=== PATIENT | female | born 1975 | race Caucasian/White ===

== ENCOUNTER 2024-02-14 06:45 | Observation (INO) | payer MEDICARE, OTHER ==
[~2024-02-14] VITALS: Ht 172.7 cm; Wt 70.0 kg
[2024-02-14 08:10] LABS: BASOPHILS % (AUTO) 0.5 % (0-1); EOSINOPHILS # (AUTO) 0.1 X10'3 (0-0.9); EOSINOPHILS % (AUTO) 1.8 % (0-6); LYMPHOCYTES # (AUTO) 1.8 X10'3 (1.1-4.8); LYMPHOCYTES % (AUTO) 25.2 % (21-51); MEAN CORPUSCULAR HEMOGLOBIN 32.6 PG (27.0-31.0); MEAN CORPUSCULAR HGB CONC 34.1 g/dL (33.0-36.5); MEAN CORPUSCULAR VOLUME 95.4 FL (78-98); MEAN PLATELET VOLUME 10.1 FL (7.4-10.4); MONOCYTES % (AUTO) 13.8 % (2-12); NEUTROPHILS # (AUTO) 4.1 X10'3 (1.8-7.7); NEUTROPHILS % (AUTO) 58.7 % (42-75); PLATELET COUNT 233 X10'3 (140-440); RED BLOOD COUNT 4.61 X10'6 (4.20-5.60); RED CELL DISTRIBUTION WIDTH 13.6 % (11.5-14.5)
[2024-02-14 08:37] LABS: ALBUMIN 3.4 G/DL (3.4-5.0); ANION GAP 7 (8-16); BLOOD UREA NITROGEN 12 MG/DL (7-18); BUN/CREATININE RATIO 13.2 (10.0-20.0); CHLORIDE 104 MMOL/L (99-107); CREATININE 0.91 MG/DL (0.40-0.90); POTASSIUM 4.3 MMOL/L (3.5-5.1); PRO BRAIN NATRIURETIC PEPTIDE 951 PG/ML (0-125); SODIUM 138 MMOL/L (135-145); TOTAL CARBON DIOXIDE 27.1 MMOL/L (24-32); eCRCL 75 ML/MIN; eGFR 66 ML/MIN
[2024-02-14 08:40] LABS: GLUCOSE 103 MG/DL (70-104)
[2024-02-14] MEDS: morphine 4 MG/ML inj SYRINge IV ONE (09:00)
[2024-02-14] MEDS: aspirin 81mg tab.chew PO SCH (09:18)
[2024-02-14] MEDS ORDERED: FURO40TA4 PO (09:41)
[2024-02-14] MEDS ORDERED: FURO-150 PO (09:41)
[2024-02-14] MEDS ORDERED: SILD20TA14 PO (09:41)
[2024-02-14] MEDS ORDERED: magnesium Cl slow-release 64mg tablet PO PRN (10:40)
[2024-02-14] MEDS ORDERED: potassium Cl 20 mEq SR tablet PO PRN ×2 (10:40)
[2024-02-14] MEDS ORDERED: magnesium sulf-water 4G/100mL 100 ML IV PRN (10:40)
[2024-02-14] MEDS ORDERED: magnesium sulf-water 2g/50mL 50 ML IV PRN (10:40)
[2024-02-14] MEDS ORDERED: potassium Cl 40MEQ/1/2NS 520ml 520 ML IV PRN (10:40)
[2024-02-14] MEDS ORDERED: acetaminophen 325mg tablet PO PRN ×2 (10:40)
[2024-02-14] MEDS: pantoprazole 40mg Tablet.DR PO SCH (11:25)
[2024-02-14] MEDS: HYDROcodone/acetaminophen 5mg/325mg tablet PO PRN (11:25)
[2024-02-14] MEDS: normal saline 1000ml 1,000 ML IV SCH (11:30)
[2024-02-14 16:31] VITALS: BP 127/82; PULSE 67; RESP 18; TEMP 97.9; O2SAT 98
[2024-02-14 16:41] VITALS: RESP 16; O2SAT 98
[2024-02-14 18:00] VITALS: BP 129/79; PULSE 70; RESP 14; TEMP 98.4; O2SAT 96
[2024-02-14 20:00] VITALS: RESP 14; O2SAT 96
[2024-02-14] MEDS: heparin, porcine 5000 units/ml vial SQ SCH (20:44)
[2024-02-14 22:00] VITALS: BP 123/87; PULSE 73; RESP 19; TEMP 97.3; O2SAT 96
[2024-02-14] MEDS: morphine 2 MG/ML inj. syringe IV PRN (22:43)
[2024-02-15] VITALS (14 sets, daily range): BP systolic 97–121; BP diastolic 47–80; PULSE 66–106; RESP 14–20; TEMP 96.7–98.2; O2SAT 93–100
[2024-02-15 05:30] LABS: BASOPHILS % (AUTO) 0.5 % (0-1); EOSINOPHILS # (AUTO) 0.2 X10'3 (0-0.9); EOSINOPHILS % (AUTO) 3.7 % (0-6); HEMATOCRIT 39.5 % (35.0-45.0); HEMOGLOBIN 13.4 g/dl (12.0-16.0); LYMPHOCYTES % (AUTO) 34.9 % (21-51); MEAN CORPUSCULAR HEMOGLOBIN 32.4 PG (27.0-31.0); MEAN CORPUSCULAR HGB CONC 33.9 g/dL (33.0-36.5); MEAN CORPUSCULAR VOLUME 95.7 FL (78-98); MEAN PLATELET VOLUME 10.1 FL (7.4-10.4); MONOCYTES # (AUTO) 0.8 X10'3 (0-0.9); MONOCYTES % (AUTO) 13.6 % (2-12); NEUTROPHILS # (AUTO) 2.7 X10'3 (1.8-7.7); NEUTROPHILS % (AUTO) 47.3 % (42-75); PLATELET COUNT 187 X10'3 (140-440); RED BLOOD COUNT 4.12 X10'6 (4.20-5.60); RED CELL DISTRIBUTION WIDTH 13.5 % (11.5-14.5); WHITE BLOOD COUNT 5.6 X10'3 (4.5-11.0)
[2024-02-15 06:21] LABS: ALANINE AMINOTRANSFERASE 100 U/L (12-78); ALBUMIN 2.7 G/DL (3.4-5.0); ALBUMIN/GLOBULIN RATIO 0.6 (1.1-1.5); ALKALINE PHOSPHATASE 73 IU/L (46-116); ANION GAP 10 (8-16); ASPARTATE AMINO TRANSFERASE 81 U/L (10-37); BILIRUBIN,TOTAL 0.8 MG/DL (0.1-1.0); BLOOD UREA NITROGEN 13 MG/DL (7-18); BUN/CREATININE RATIO 14.6 (10.0-20.0); CALCIUM 8.9 MG/DL (8.5-10.1); CHLORIDE 104 MMOL/L (99-107); CREATININE 0.89 MG/DL (0.40-0.90); GLUCOSE 98 MG/DL (70-104); POTASSIUM 3.6 MMOL/L (3.5-5.1); SODIUM 137 MMOL/L (135-145); TOTAL CARBON DIOXIDE 23.5 MMOL/L (24-32); TOTAL PROTEIN 7.6 G/DL (6.4-8.2); eCRCL 77 ML/MIN; eGFR 67 ML/MIN
[2024-02-15] MEDS ORDERED: aspirin 81mg tab.chew PO SCH (08:30)
[2024-02-15] MEDS ORDERED: nitroGLYCERIN 0.4mg SUBLingual tab SL PRN (10:05)
[2024-02-15] MEDS ORDERED: metoprolol tartrate 1mg/ml inj IV PRN (10:05)
[2024-02-15] MEDS ORDERED: aminophylline 250mg/10ml inj. IV PRN (10:05)
[2024-02-15] MEDS: regadenoson 0.4mg/5ml syringe IV PRN (12:33)
[2024-02-15] MEDS: carVEDilol 3.125mg tablet PO SCH (13:34)
[2024-02-15] MEDS: furosemide 20MG tablet PO SCH (13:34)
[2024-02-15] MEDS: losartan 25mg tablet PO SCH (13:34)
[2024-02-15] MEDS: spironolactone 25 MG tablet PO SCH (13:36)
[2024-02-15] MEDS: sildenafil citrate 20mg tablet PO SCH (20:40)
[2024-02-16 02:00] VITALS: BP 93/52; PULSE 76; RESP 21; TEMP 97.5; O2SAT 94
[2024-02-16 06:00] VITALS: BP 86/57; PULSE 79; RESP 17; TEMP 97.9; O2SAT 93
[2024-02-16 06:03] LABS: BASOPHILS % (AUTO) 0.3 % (0-1); EOSINOPHILS # (AUTO) 0.2 X10'3 (0-0.9); EOSINOPHILS % (AUTO) 2.8 % (0-6); HEMATOCRIT 40.7 % (35.0-45.0); HEMOGLOBIN 14.1 g/dl (12.0-16.0); LYMPHOCYTES # (AUTO) 1.6 X10'3 (1.1-4.8); LYMPHOCYTES % (AUTO) 24.2 % (21-51); MEAN CORPUSCULAR HEMOGLOBIN 33.1 PG (27.0-31.0); MEAN CORPUSCULAR HGB CONC 34.5 g/dL (33.0-36.5); MEAN PLATELET VOLUME 11.1 FL (7.4-10.4); MONOCYTES % (AUTO) 14.4 % (2-12); NEUTROPHILS # (AUTO) 3.9 X10'3 (1.8-7.7); NEUTROPHILS % (AUTO) 58.3 % (42-75); PLATELET COUNT 197 X10'3 (140-440); RED BLOOD COUNT 4.24 X10'6 (4.20-5.60); RED CELL DISTRIBUTION WIDTH 13.5 % (11.5-14.5); WHITE BLOOD COUNT 6.7 X10'3 (4.5-11.0)
[2024-02-16 06:19] LABS: ALANINE AMINOTRANSFERASE 107 U/L (12-78); ALBUMIN/GLOBULIN RATIO 0.6 (1.1-1.5); ALKALINE PHOSPHATASE 75 IU/L (46-116); ANION GAP 11 (8-16); ASPARTATE AMINO TRANSFERASE 94 U/L (10-37); BLOOD UREA NITROGEN 18 MG/DL (7-18); BUN/CREATININE RATIO 21.2 (10.0-20.0); CALCIUM 9.2 MG/DL (8.5-10.1); CHLORIDE 101 MMOL/L (99-107); CREATININE 0.85 MG/DL (0.40-0.90); GLUCOSE 105 MG/DL (70-104); POTASSIUM 3.6 MMOL/L (3.5-5.1); SODIUM 135 MMOL/L (135-145); TOTAL CARBON DIOXIDE 23.3 MMOL/L (24-32); TOTAL PROTEIN 8.3 G/DL (6.4-8.2); eCRCL 81 ML/MIN; eGFR 71 ML/MIN
[2024-02-16] MEDS: ondansetron/PF 4mg/2ml inj IV PRN (08:00)
[2024-02-16] MEDS ORDERED: LOSA25TA41 PO ×2 (09:51→10:51)
[2024-02-16] MEDS ORDERED: COR3.125T PO (09:51)
[2024-02-16] MEDS ORDERED: PANT40TA54 PO (09:51)
[2024-02-16] MEDS ORDERED: SPIR25TA PO (09:51)
[2024-02-16 10:00] VITALS: BP 90/54; PULSE 74; RESP 17; TEMP 97.8; O2SAT 94
== END 2024-02-16 15:00 | disposition home or self-care (01) ==
LOC: ER 06:45 → ED HOLD 10:37 → PCU 3S 16:34
PROVIDERS: ADMIT Internal Medicine; ATTEND Internal Medicine
DX: R07.89 Other chest pain (principal); I27.0 Primary pulmonary hypertension; I50.20 Unspecified systolic (congestive) heart failure; F41.8 Other specified anxiety disorders; I42.9 Cardiomyopathy, unspecified; Z79.899 Other long term (current) drug therapy
CPT/HCPCS: 36415; 71045; 78452; 80048; 80053; 83880; 84484; 85025; 85379; 87081; 93005; 93017; 93306; 96361; 96372; 96374; 96375; 96376; 99285; A9500; G0378; J1644; J2270; J2405; J2785; J7030; A4615

== ENCOUNTER 2024-03-31 11:48 | Emergency (ER) | payer OTHER ==
[~2024-03-31] VITALS: Ht 172.7 cm; Wt 61.4 kg
[~2024-03-31 11:48] MED LIST: COR3.125T PO; FURO40TA4 PO; LOSA25TA41 PO; PANT40TA54 PO; SILD20TA14 PO
[2024-03-31 12:08] VITALS: TEMP 97.8
[2024-03-31 12:24] LABS: BASOPHILS % (AUTO) 0.4 % (0-1); EOSINOPHILS # (AUTO) 0.1 X10'3 (0-0.9); HEMOGLOBIN 15.1 g/dl (12.0-16.0); LYMPHOCYTES # (AUTO) 1.6 X10'3 (1.1-4.8); MEAN CORPUSCULAR HGB CONC 34.8 g/dL (33.0-36.5); MEAN PLATELET VOLUME 10.4 FL (7.4-10.4); MONOCYTES # (AUTO) 0.9 X10'3 (0-0.9); NEUTROPHILS # (AUTO) 2.5 X10'3 (1.8-7.7)
[2024-03-31 12:26] LABS: EOSINOPHILS % (AUTO) 2.4 % (0-6); HEMATOCRIT 43.5 % (35.0-45.0); LYMPHOCYTES % (AUTO) 31.5 % (21-51); MEAN CORPUSCULAR HEMOGLOBIN 34.2 PG (27.0-31.0); MEAN CORPUSCULAR VOLUME 98.4 FL (78-98); NEUTROPHILS % (AUTO) 48.7 % (42-75); PLATELET COUNT 191 X10'3 (140-440); RED BLOOD COUNT 4.42 X10'6 (4.20-5.60); RED CELL DISTRIBUTION WIDTH 14.3 % (11.5-14.5)
[2024-03-31 12:42] LABS: ALANINE AMINOTRANSFERASE 169 U/L (12-78); ALBUMIN 3.5 G/DL (3.4-5.0); ALBUMIN/GLOBULIN RATIO 0.6 (1.1-1.5); ALKALINE PHOSPHATASE 99 IU/L (46-116); ANION GAP 6 (8-16); ASPARTATE AMINO TRANSFERASE 143 U/L (10-37); BILIRUBIN,TOTAL 0.6 MG/DL (0.1-1.0); BLOOD UREA NITROGEN 8 MG/DL (7-18); BUN/CREATININE RATIO 10.1 (10.0-20.0); CALCIUM 9.3 MG/DL (8.5-10.1); CHLORIDE 104 MMOL/L (99-107); CREATININE 0.79 MG/DL (0.40-0.90); GLUCOSE 106 MG/DL (70-104); POTASSIUM 3.9 MMOL/L (3.5-5.1); PRO BRAIN NATRIURETIC PEPTIDE 683 PG/ML (0-125); SODIUM 137 MMOL/L (135-145); TOTAL PROTEIN 9.5 G/DL (6.4-8.2); eCRCL 83 ML/MIN; eGFR 77 ML/MIN
[2024-03-31 12:49] LABS: PLATELET ESTIMATE NORMAL
[2024-03-31 12:50] LABS: TARGET CELLS 1+
[2024-03-31] MEDS ORDERED: LORazepam 2 mg/ml vial IV ONE (14:25)
[2024-03-31] MEDS: ipratropium/albuterol 3ml nebule NEB ONE (14:26)
[2024-03-31 14:35] LABS: D-DIMER 0.39 MG/L FEU (0-0.50)
[2024-03-31] MEDS: LORazepam 1 MG tablet PO PRN (15:23)
[2024-03-31 15:36] VITALS: PULSE 75
[2024-03-31 15:37] VITALS: BP 116/89; RESP 17; O2SAT 97
== END 2024-03-31 15:35 | disposition home or self-care (01) ==
LOC: ER 11:49
DX: R07.89 Other chest pain (principal); F41.9 Anxiety disorder, unspecified; F32.A Depression, unspecified; Z88.8 Allergy status to other drugs, medicaments and biological substances; Z79.899 Other long term (current) drug therapy; Z90.49 Acquired absence of other specified parts of digestive tract
CPT/HCPCS: 36415; 71045; 80053; 83880; 84484; 85008; 85025; 85379; 93005; 99285

== ENCOUNTER 2024-04-16 11:08 | Emergency (ER) | payer OTHER ==
[~2024-04-16] VITALS: Ht 172.7 cm; Wt 61.4 kg
[2024-04-16 11:34] LABS: BASOPHILS % (AUTO) 0.4 % (0-1); EOSINOPHILS # (AUTO) 0.1 X10'3 (0-0.9); EOSINOPHILS % (AUTO) 2.2 % (0-6); HEMATOCRIT 42.5 % (35.0-45.0); HEMOGLOBIN 14.8 g/dl (12.0-16.0); LYMPHOCYTES # (AUTO) 1.7 X10'3 (1.1-4.8); LYMPHOCYTES % (AUTO) 32.1 % (21-51); MEAN CORPUSCULAR HEMOGLOBIN 34.7 PG (27.0-31.0); MEAN CORPUSCULAR HGB CONC 34.8 g/dL (33.0-36.5); MEAN CORPUSCULAR VOLUME 99.8 FL (78-98); MEAN PLATELET VOLUME 9.6 FL (7.4-10.4); MONOCYTES # (AUTO) 0.7 X10'3 (0-0.9); MONOCYTES % (AUTO) 14.3 % (2-12); NEUTROPHILS # (AUTO) 2.6 X10'3 (1.8-7.7); PLATELET COUNT 194 X10'3 (140-440); RED BLOOD COUNT 4.26 X10'6 (4.20-5.60); RED CELL DISTRIBUTION WIDTH 13.6 % (11.5-14.5); WHITE BLOOD COUNT 5.2 X10'3 (4.5-11.0)
[2024-04-16 11:57] LABS: ALANINE AMINOTRANSFERASE 161 U/L (12-78); ALBUMIN 3.5 G/DL (3.4-5.0); ALBUMIN/GLOBULIN RATIO 0.6 (1.1-1.5); ALKALINE PHOSPHATASE 99 IU/L (46-116); ANION GAP 7 (8-16); ASPARTATE AMINO TRANSFERASE 131 U/L (10-37); BILIRUBIN,TOTAL 0.9 MG/DL (0.1-1.0); BLOOD UREA NITROGEN 11 MG/DL (7-18); BUN/CREATININE RATIO 15.1 (10.0-20.0); CALCIUM 9.2 MG/DL (8.5-10.1); CHLORIDE 105 MMOL/L (99-107); CREATININE 0.73 MG/DL (0.40-0.90); GLUCOSE 98 MG/DL (70-104); POTASSIUM 3.8 MMOL/L (3.5-5.1); PRO BRAIN NATRIURETIC PEPTIDE 586 PG/ML (0-125); SODIUM 136 MMOL/L (135-145); TOTAL CARBON DIOXIDE 23.6 MMOL/L (24-32); TOTAL PROTEIN 9.2 G/DL (6.4-8.2); eCRCL 90 ML/MIN; eGFR 85 ML/MIN
[2024-04-16] MEDS ORDERED: CEFU250T95 PO (12:17)
[2024-04-16] MEDS: ondansetron/PF 4mg/2ml inj IM ONE (12:28)
[2024-04-16] MEDS: furosemide 10 MG/1 ML 10ml inj IV ONE (12:34)
[2024-04-16] MEDS ORDERED: PRED10TA23 PO (13:00)
[2024-04-16] MEDS: ketorolac trometh 15mg/ml vial 15 MG/ML ML IV ONE (13:24)
[2024-04-16 13:29] VITALS: BP 115/86; PULSE 79; RESP 16; TEMP 98.2; O2SAT 96
== END 2024-04-16 13:32 | disposition home or self-care (01) ==
LOC: ER 11:08
DX: I50.9 Heart failure, unspecified (principal); J40 Bronchitis, not specified as acute or chronic; Z90.49 Acquired absence of other specified parts of digestive tract; Z72.0 Tobacco use; Z88.8 Allergy status to other drugs, medicaments and biological substances; Z79.899 Other long term (current) drug therapy; Z79.52 Long term (current) use of systemic steroids
CPT/HCPCS: 36415; 71045; 80053; 83880; 84484; 85025; 93005; 96372; 96374; 96375; 99285; J1885; J1940; J2405

== ENCOUNTER 2024-05-13 19:35 | Emergency (ER) | payer MEDICAID, OTHER ==
[~2024-05-13] VITALS: Ht 172.7 cm; Wt 77.0 kg
[2024-05-13 19:40] VITALS: TEMP 98.4
[2024-05-13] MEDS: LORazepam 1 MG tablet PO ONE (20:28)
[2024-05-13] MEDS: aspirin 81mg tab.chew PO ONE (20:29)
[2024-05-13 20:40] LABS: BASOPHILS % (AUTO) 0.5 % (0-1); EOSINOPHILS # (AUTO) 0.3 X10'3 (0-0.9); EOSINOPHILS % (AUTO) 4.8 % (0-6); HEMATOCRIT 41.7 % (35.0-45.0); HEMOGLOBIN 14.6 g/dl (12.0-16.0); LYMPHOCYTES % (AUTO) 33.9 % (21-51); MEAN CORPUSCULAR HEMOGLOBIN 34.5 PG (27.0-31.0); MEAN CORPUSCULAR VOLUME 98.4 FL (78-98); MEAN PLATELET VOLUME 9.2 FL (7.4-10.4); MONOCYTES # (AUTO) 0.8 X10'3 (0-0.9); MONOCYTES % (AUTO) 13.6 % (2-12); NEUTROPHILS # (AUTO) 2.8 X10'3 (1.8-7.7); NEUTROPHILS % (AUTO) 47.2 % (42-75); PLATELET COUNT 183 X10'3 (140-440); RED BLOOD COUNT 4.23 X10'6 (4.20-5.60); RED CELL DISTRIBUTION WIDTH 13.1 % (11.5-14.5); WHITE BLOOD COUNT 5.9 X10'3 (4.5-11.0)
[2024-05-13 21:07] LABS: D-DIMER < 0.19 MG/L FEU (0-0.50)
[2024-05-13] MEDS: metoclopramide 10mg tablet PO ONE (21:24)
[2024-05-13 21:25] LABS: ALBUMIN 3.1 G/DL (3.4-5.0); ANION GAP 9 (8-16); BLOOD UREA NITROGEN 8 MG/DL (7-18); BUN/CREATININE RATIO 9.9 (10.0-20.0); CALCIUM 8.6 MG/DL (8.5-10.1); CHLORIDE 103 MMOL/L (99-107); CREATININE 0.81 MG/DL (0.40-0.90); GLUCOSE 100 MG/DL (70-104); POTASSIUM 3.8 MMOL/L (3.5-5.1); PRO BRAIN NATRIURETIC PEPTIDE 487 PG/ML (0-125); SODIUM 136 MMOL/L (135-145); TOTAL CARBON DIOXIDE 23.6 MMOL/L (24-32); eCRCL 85 ML/MIN; eGFR 75 ML/MIN
[2024-05-13] MEDS: ketorolac trometh 30MG/ML vial 30 MG/ML VIAL IM ONE (21:25)
[2024-05-13 23:44] VITALS: BP 102/75; PULSE 88; RESP 16; O2SAT 91
== END 2024-05-13 23:45 | disposition home or self-care (01) ==
LOC: ER 19:37
DX: R07.9 Chest pain, unspecified (principal); R06.02 Shortness of breath; I50.9 Heart failure, unspecified; I27.20 Pulmonary hypertension, unspecified; F41.9 Anxiety disorder, unspecified; F32.A Depression, unspecified; Z90.49 Acquired absence of other specified parts of digestive tract; Z88.8 Allergy status to other drugs, medicaments and biological substances; Z79.899 Other long term (current) drug therapy
CPT/HCPCS: 36415; 71045; 80048; 83880; 84484; 85025; 85379; 93005; 96372; 99285; J1885

== ENCOUNTER 2024-07-25 21:08 | Emergency (ER) | payer MEDICAID ==
[~2024-07-25] VITALS: Ht 172.7 cm; Wt 73.2 kg
[~2024-07-25 21:08] MED LIST changes: +CARV3.1232 PO; -COR3.125T PO
[2024-07-25 21:12] VITALS: TEMP 98.5
[2024-07-25 22:04] LABS: ALANINE AMINOTRANSFERASE 141 U/L (12-78); ALBUMIN 3.5 G/DL (3.4-5.0); ALBUMIN/GLOBULIN RATIO 0.6 (1.1-1.5); ALKALINE PHOSPHATASE 104 IU/L (46-116); ANION GAP 12 (8-16); BILIRUBIN,TOTAL 0.4 MG/DL (0.1-1.0); BLOOD UREA NITROGEN 4 MG/DL (7-18); BUN/CREATININE RATIO 5.2 (10.0-20.0); CALCIUM 9.2 MG/DL (8.5-10.1); CHLORIDE 101 MMOL/L (99-107); CREATININE 0.77 MG/DL (0.40-0.90); GLUCOSE 98 MG/DL (70-104); SODIUM 137 MMOL/L (135-145); TOTAL CARBON DIOXIDE 24.1 MMOL/L (24-32); TOTAL PROTEIN 9.2 G/DL (6.4-8.2); eCRCL 89 ML/MIN; eGFR 80 ML/MIN
[2024-07-25 22:11] LABS: PRO BRAIN NATRIURETIC PEPTIDE 290 PG/ML (0-125)
[2024-07-25 22:12] LABS: ASPARTATE AMINO TRANSFERASE 151 U/L (10-37); POTASSIUM 4.2 MMOL/L (3.5-5.1)
[2024-07-25 22:15] LABS: MEAN CORPUSCULAR HEMOGLOBIN 34.9 PG (27.0-31.0); NEUTROPHILS # (AUTO) 3.7 X10'3 (1.8-7.7); RED CELL DISTRIBUTION WIDTH 13.4 % (11.5-14.5)
[2024-07-25 22:16] LABS: BASOPHILS % (AUTO) 0.7 % (0-1); EOSINOPHILS # (AUTO) 0.2 X10'3 (0-0.9); EOSINOPHILS % (AUTO) 2.3 % (0-6); HEMATOCRIT 44.8 % (35.0-45.0); HEMOGLOBIN 15.8 g/dl (12.0-16.0); LYMPHOCYTES % (AUTO) 29.7 % (21-51); MEAN CORPUSCULAR HGB CONC 35.3 g/dL (33.0-36.5); MEAN CORPUSCULAR VOLUME 98.9 FL (78-98); MEAN PLATELET VOLUME 10.5 FL (7.4-10.4); MONOCYTES # (AUTO) 0.9 X10'3 (0-0.9); MONOCYTES % (AUTO) 13.6 % (2-12); NEUTROPHILS % (AUTO) 53.7 % (42-75); PLATELET COUNT 195 X10'3 (140-440); RED BLOOD COUNT 4.52 X10'6 (4.20-5.60); WHITE BLOOD COUNT 6.8 X10'3 (4.5-11.0)
[2024-07-25] MEDS: orphenadrine citrate 60mg/2ml inj. IM ONE (23:20)
[2024-07-25] MEDS: ketorolac trometh 15mg/ml vial 15 MG/ML ML IM ONE (23:21)
[2024-07-25 23:42] LABS: GIANT PLATELET FEW; LARGE PLATELETS MANY; PLATELET ESTIMATE NORMAL
[2024-07-26] MEDS: oxyCODONE/APAP 10/325mg tablet PO ONE (00:09)
[2024-07-26 00:15] VITALS: BP 113/87; PULSE 87; RESP 15; O2SAT 96
== END 2024-07-26 00:20 | disposition home or self-care (01) ==
LOC: ER 21:09
DX: M62.838 Other muscle spasm (principal); M25.512 Pain in left shoulder; F32.A Depression, unspecified; F41.9 Anxiety disorder, unspecified; F17.210 Nicotine dependence, cigarettes, uncomplicated; I10 Essential (primary) hypertension; I50.9 Heart failure, unspecified; Z88.8 Allergy status to other drugs, medicaments and biological substances; Z90.49 Acquired absence of other specified parts of digestive tract; Z79.899 Other long term (current) drug therapy
CPT/HCPCS: 36415; 71045; 80053; 83880; 84484; 85008; 85025; 85379; 93005; 96372; 99285; J1885; J2360

== ENCOUNTER 2024-09-22 18:28 | Emergency (ER) | payer MEDICAID ==
[~2024-09-22] VITALS: Ht 172.7 cm; Wt 70.0 kg
[2024-09-22 19:25] LABS: EOSINOPHILS # (AUTO) 0.1 X10'3 (0-0.9); EOSINOPHILS % (AUTO) 1.6 % (0-6); HEMOGLOBIN 15.1 g/dl (12.0-16.0); MEAN PLATELET VOLUME 9.5 FL (7.4-10.4); MONOCYTES # (AUTO) 0.8 X10'3 (0-0.9); RED CELL DISTRIBUTION WIDTH 12.6 % (11.5-14.5)
[2024-09-22 19:41] LABS: ANION GAP 10 (8-16); BILIRUBIN,TOTAL 0.6 MG/DL (0.1-1.0); BLOOD UREA NITROGEN 11 MG/DL (7-18); BUN/CREATININE RATIO 14.1 (10.0-20.0); CHLORIDE 103 MMOL/L (99-107); CREATININE 0.78 MG/DL (0.40-0.90); GLUCOSE 111 MG/DL (70-104); POTASSIUM 3.8 MMOL/L (3.5-5.1); SODIUM 137 MMOL/L (135-145); TOTAL CARBON DIOXIDE 24.5 MMOL/L (24-32); eCRCL 88 ML/MIN; eGFR 78 ML/MIN
[2024-09-22 19:42] LABS: ALANINE AMINOTRANSFERASE 118 U/L (12-78); ALBUMIN 3.4 G/DL (3.4-5.0); ALBUMIN/GLOBULIN RATIO 0.6 (1.1-1.5); ALKALINE PHOSPHATASE 103 IU/L (46-116); ASPARTATE AMINO TRANSFERASE 107 U/L (10-37)
[2024-09-22 19:51] LABS: PRO BRAIN NATRIURETIC PEPTIDE 100 PG/ML (0-125)
[2024-09-22 19:59] LABS: BASOPHILS % (AUTO) 0.6 % (0-1); HEMATOCRIT 43.4 % (35.0-45.0); LYMPHOCYTES # (AUTO) 1.6 X10'3 (1.1-4.8); LYMPHOCYTES % (AUTO) 24.1 % (21-51); MEAN CORPUSCULAR HEMOGLOBIN 34.5 PG (27.0-31.0); MEAN CORPUSCULAR HGB CONC 34.8 g/dL (33.0-36.5); MEAN CORPUSCULAR VOLUME 99.2 FL (78-98); MONOCYTES % (AUTO) 12.2 % (2-12); NEUTROPHILS % (AUTO) 61.5 % (42-75); PLATELET COUNT 192 X10'3 (140-440); RED BLOOD COUNT 4.38 X10'6 (4.20-5.60); WHITE BLOOD COUNT 6.5 X10'3 (4.5-11.0)
[2024-09-22] MEDS: HYDROcodone/acetaminophen 5mg/325mg tablet PO ONE (21:32)
[2024-09-22] MEDS ORDERED: AMOX-580 PO (21:38)
[2024-09-22 21:58] VITALS: BP 112/79; PULSE 86; RESP 12; TEMP 98.2; O2SAT 96
== END 2024-09-22 22:00 | disposition home or self-care (01) ==
LOC: ER 18:29
DX: S06.0XAA Concussion with loss of consciousness status unknown, initial encounter (principal); S00.83XA Contusion of other part of head, initial encounter; K04.7 Periapical abscess without sinus; I50.9 Heart failure, unspecified; R55 Syncope and collapse; F41.9 Anxiety disorder, unspecified; F32.A Depression, unspecified; Z90.49 Acquired absence of other specified parts of digestive tract; Z88.8 Allergy status to other drugs, medicaments and biological substances; Z79.899 Other long term (current) drug therapy; W18.39XA Other fall on same level, initial encounter; Y93.89 Activity, other specified; Y92.89 Other specified places as the place of occurrence of the external cause; Y99.8 Other external cause status
CPT/HCPCS: 36415; 70450; 70486; 71045; 72125; 80053; 82948; 83880; 84484; 85025; 93005; 99285

== ENCOUNTER 2024-10-23 14:20 | Emergency (ER) | payer MEDICAID ==
[~2024-10-23] VITALS: Ht 172.7 cm; Wt 69.3 kg
[~2024-10-23 14:20] MED LIST changes: +AMOX-580 PO
[2024-10-23 15:34] VITALS: TEMP 98.1
[2024-10-23] MEDS ORDERED: HYDR-3965 PO (17:12)
[2024-10-23] MEDS: HYDROcodone/acetaminophen 10/325mg tab PO ONE (17:20)
[2024-10-23 18:14] VITALS: BP 108/71; PULSE 71; RESP 16; O2SAT 98
== END 2024-10-23 18:18 | disposition home or self-care (01) ==
LOC: ER 14:21
DX: N64.4 Mastodynia (principal); I50.9 Heart failure, unspecified; F32.A Depression, unspecified; F41.9 Anxiety disorder, unspecified; Z85.3 Personal history of malignant neoplasm of breast; Z90.49 Acquired absence of other specified parts of digestive tract; Z88.8 Allergy status to other drugs, medicaments and biological substances; Z79.899 Other long term (current) drug therapy
CPT/HCPCS: 71045; 99283

== ENCOUNTER 2025-01-17 17:47 | Emergency (ER) | payer MEDICAID ==
[~2025-01-17] VITALS: Ht 172.7 cm; Wt 74.0 kg
[~2025-01-17 17:47] MED LIST changes: -AMOX-580 PO
[2025-01-17 17:56] VITALS: TEMP 95.9
--- NOTE | 2025-01-17 18:22 | RADIOLOGY REPORT ---
EXAM: DI CHEST,SINGLE VIEW CLINICAL HISTORY: cough TECHNIQUE: Single AP view of the chest WID: COMPARISON: DI CHEST,SINGLE VIEW on DOS: 10/23/24 FINDINGS: Lines and tubes: None Chest: The heart size and pulmonary vasculature is within normal limits. No pleural effusion, pneumothorax, or consolidation. Linear bibasilar scarring or atelectasis. The osseous structures are grossly intact. IMPRESSION: No acute cardiopulmonary abnormality. Linear bibasilar scarring or atelectasis.
--- NOTE | 2025-01-17 18:30 | Physician Documentation ---
History of Present Illness ~ Chief Complaint: Abdominal Pain w/vomiting Stated Complaint: N/V ABD PAIN Time Seen by MD: 18:00 Primary Medical Doctor: Claudette SINGH Patient presents to the emergency room for evaluation of nausea vomiting and abdominal pain that has been gradually increasing over the past five days. Patient has history of breast cancer which was diagnosed this past August. She started tamoxifen but it was unable to tolerate that. She states that it has grown since it was discovered. She is on 6 L of oxygen at baseline and reports no increased in shortness of breath. She has taken Zofran for her abdominal pain and nausea and vomiting however this did not have affect. Last dose at approximately 11:00 a.m.. No prior instances. Medication Reconciliation Allergies: Coded Allergies: butorphanol tartrate (Unverified Allergy, Unknown, 01/17/25) prochlorperazine maleate (Unverified Allergy, Unknown, 01/17/25) Scheduled Carvedilol (Carvedilol), 3.125 MG PO BID Furosemide (Furosemide), 1 TAB PO QAM, (Reported) Losartan Potassium (Losartan Potassium), 12.5 MG PO DAILY Pantoprazole Sodium (Pantoprazole Sodium), 40 MG PO DAILY Sildenafil Citrate (Sildenafil), 1.5 TAB PO BID, (Reported) Past Medical History Past Medical History: Congestive Heart Failure, Pulmonary HTN, Anxiety, Depression Past Surgical History: appendectomy, cholecystectomy, other Alcohol Use: None Drug Use: none Lives with: Other Lives In: Home Occupation: employed Review of Systems ROS All review of systems negative except as per HPI Physical Exam Vital Signs: Temperature: 95.9, Source: Temporal, Heart Rate: 73, Respiratory Rate: 13, BP: 111/74, Pulse Oximetry: 96, Weight: 74.000 Oxygen Flow Rate: 6.0 Physical Exam General: Patient is awake, alert, oriented x4 in mild distress Head: Normocephalic and atraumatic. Eyes: Conjunctival normal. EOMI. PERRL. ENT: Mucous membranes moist. Neck: Supple, trachea is midline. Chest: Clear to auscultation bilaterally without rales, rhonchi, or wheezes. There is no accessory muscle use or retractions. Cardiac: RRR without murmurs, gallops, or rubs. Abd: Soft, mild distention with positive tenderness to palpation to right abdomen Progress Results/Orders Results/Orders Orders - SAMI WOODY MD Culture Blood (01/17/25 18:00) Chest,Single View (01/17/25 18:08) Ct Abdomen Pelvis (01/17/25 19:18) Completed Orders - SAMI WOODY MD Procalcitonin (01/17/25 18:00) Lacticsepsis (01/17/25 18:00) Chest,Single View (01/17/25 18:08) Fentanyl/Pf (Fentanyl 0.05 Mg/Ml Syringe (01/17/25 18:25) Metoclopramide Inj (Reglan Inj) (01/17/25 18:25) Diphenhydramine Inj (Benadryl Inj.) (01/17/25 18:25) Ct Abdomen Pelvis (01/17/25 19:18) Acetaminophen 1,000mg/100ml Iv (Ofirmev (01/17/25 18:45) Potassium Cl Sr Tablet (K-Dur Tablet) (01/17/25 19:35) Medications Received in ER Medications (Trade) Dose Ordered Sig/Deanna Route PRN Reason Start Time Stop Time Status Last Admin Dose Admin (fentaNYL 0.05 MG/ML syringe) 75 mcg ONCE ONCE IV 01/17/25 18:25 01/17/25 18:28 DC 01/17/25 18:41 75 MCG (Reglan inj) 10 mg ONCE ONCE IV 01/17/25 18:25 01/17/25 18:28 DC 01/17/25 18:35 10 MG (Benadryl inj.) 25 mg ONCE ONCE IV 01/17/25 18:25 01/17/25 18:28 DC 01/17/25 18:40 25 MG Acetaminophen 100 ml @ 400 mls/hr ONCE ONCE IV 01/17/25 18:45 01/17/25 18:59 DC 01/17/25 19:45 400 MLS/HR (K-DUR tablet) 40 meq ONCE STAT PO 01/17/25 19:35 01/17/25 19:37 DC 01/17/25 19:52 40 MEQ Vital Signs 01/17/25 01/17/25 01/17/25 01/17/25 17:56 18:00 18:00 18:41 Temp 95.9 Pulse 73 68 Resp 13 16 12 16 B/P (MAP) 111/74 111/74 (86) Pulse Ox 96 98 O2 Flow Rate 6.0 0 01/17/25 01/17/25 19:45 19:52 Pulse 65 Resp 16 12 B/P (MAP) 100/72 (81) Pulse Ox 98 O2 Flow Rate 6.0 Laboratory Tests Test 01/17/25 18:22 White Blood Count 5.3 Red Blood Count 4.77 Hemoglobin 15.9 Hematocrit 45.9 H Mean Corpuscular Volume 96.2 Mean Corpuscular Hemoglobin 33.4 H Mean Corpuscular Hemoglobin Concent 34.7 Red Cell Distribution Width 13.5 Platelet Count 228 Mean Platelet Volume 8.8 Neutrophils (%) (Auto) 58.5 Lymphocytes (%) (Auto) 19.5 L Monocytes (%) (Auto) 18.7 H Eosinophils (%) (Auto) 3.0 Basophils (%) (Auto) 0.3 Neutrophils # (Auto) 3.1 Lymphocytes # (Auto) 1.0 L Monocytes # (Auto) 1.0 H Eosinophils # (Auto) 0.2 Basophils # (Auto) 0.0 CBC Comment Differential Total Cells Counted 100 Neutrophils % (Manual) 65.0 Lymphocytes % (Manual) 16.0 L Monocytes % (Manual) 15.0 H Eosinophils % (Manual) 4.0 Platelet Estimate Normal Red Blood Cell Morphology Perf Basophilic Stippling Anisocytosis 1+ Macrocytosis 1+ Sodium Level 133 L Potassium Level 2.7 *L Chloride Level 95 L Carbon Dioxide Level 30.0 Anion Gap 8 Blood Urea Nitrogen 10 Creatinine 0.88 Estimated GFR/1.73 m2 68 BUN/Creatinine Ratio 11.4 Glucose Level 102 Lactic Acid Level 1.3 Calcium Level 9.0 Total Bilirubin 0.9 Aspartate Amino Transf (AST/SGOT) 41 H Alanine Aminotransferase (ALT/SGPT) 40 Alkaline Phosphatase 121 H Total Protein 9.3 H Albumin 3.4 Globulin 5.9 H Albumin/Globulin Ratio 0.6 L Lipase 15 L Procalcitonin 21.86 H Chemistry Comments Medical Decision Making Findings Patient presents to the emergency room with nausea vomiting abdominal pain. Differentials include but are not limited to cholecystitis appendicitis diverticulitis pancreatitis kidney stone therefore emergent labs and imaging indicated. CT scan of the abdomen that has reassuring. Hypokalemia noted in supplementation has been implemented. Patient is responding to nausea therapy. Patient is on palliative care and she reports that she has plenty of pain medication at home. I will add small course of potassium and I will add some Compazine. Patient does have noted elevation of procalcitonin however I feel this is a function of her cancer and does not represent infectious process. Departure Disposition: HOME / SELF CARE / HOMELESS Impression: Primary Impression: Vomiting Additional Impressions: Hypokalemia Abdominal pain Condition: Improved Discharge Instructions: Gastritis, Adult Referrals: NO PRIMARY CARE PROVIDER (PCP) Prescriptions Prochlorperazine Maleate (Compazine) 10 Mg Tablet 1 TAB PO Q6H for Vomiting, #28 TAB 0 Refills Prov: SAMI WOODY MD 01/17/25 Potassium Chloride* (K-Dur*) 20 Meq Tab.prt.sr 1 TAB PO Q12H, #6 TAB Prov: SAMI WOODY MD 01/17/25 Education Educated: Patient Educated regarding: diagnosis, treatment, need for follow up Signature Scribe Signature: No scribe Attestation: The note accurately reflects work and decisions made by me.Sami Woody MD 01/17/25 20:03 SAMI WOODY MD Jan 17, 2025 18:30
[2025-01-17] MEDS: metoclopramide 5 mg/ml inj IV ONE (18:35)
[2025-01-17] MEDS: diphenhydrAMINE 50 mg/ml inj IV ONE (18:40)
[2025-01-17] MEDS: fentaNYL/PF 50MCG/1 ML 2ML syringe IV ONE (18:41)
[2025-01-17 18:42] LABS: BASOPHILS % (AUTO) 0.3 % (0-1); EOSINOPHILS # (AUTO) 0.2 X10'3 (0-0.9); HEMATOCRIT 45.9 % (35.0-45.0); HEMOGLOBIN 15.9 g/dl (12.0-16.0); LYMPHOCYTES % (AUTO) 19.5 % (21-51); MEAN CORPUSCULAR HEMOGLOBIN 33.4 PG (27.0-31.0); MEAN CORPUSCULAR HGB CONC 34.7 g/dL (33.0-36.5); MEAN CORPUSCULAR VOLUME 96.2 FL (78-98); MEAN PLATELET VOLUME 8.8 FL (7.4-10.4); MONOCYTES % (AUTO) 18.7 % (2-12); NEUTROPHILS # (AUTO) 3.1 X10'3 (1.8-7.7); NEUTROPHILS % (AUTO) 58.5 % (42-75); PLATELET COUNT 228 X10'3 (140-440); RED BLOOD COUNT 4.77 X10'6 (4.20-5.60); RED CELL DISTRIBUTION WIDTH 13.5 % (11.5-14.5); WHITE BLOOD COUNT 5.3 X10'3 (4.5-11.0)
[2025-01-17 18:58] LABS: ALANINE AMINOTRANSFERASE 40 U/L (12-78); ALBUMIN 3.4 G/DL (3.4-5.0); ALBUMIN/GLOBULIN RATIO 0.6 (1.1-1.5); ALKALINE PHOSPHATASE 121 IU/L (46-116); ANION GAP 8 (8-16); ASPARTATE AMINO TRANSFERASE 41 U/L (10-37); BILIRUBIN,TOTAL 0.9 MG/DL (0.1-1.0); BLOOD UREA NITROGEN 10 MG/DL (7-18); BUN/CREATININE RATIO 11.4 (10.0-20.0); CHLORIDE 95 MMOL/L (99-107); CREATININE 0.88 MG/DL (0.40-0.90); GLUCOSE 102 MG/DL (70-104); LIPASE 15 U/L (16-77); SODIUM 133 MMOL/L (135-145); TOTAL PROTEIN 9.3 G/DL (6.4-8.2); eCRCL 77 ML/MIN; eGFR 68 ML/MIN
[2025-01-17 19:22] LABS: TOTAL CELLS COUNTED 100
[2025-01-17 19:23] LABS: ANISOCYTOSIS 1+; PLATELET ESTIMATE NORMAL; POTASSIUM 2.7 MMOL/L (3.5-5.1)
--- NOTE | 2025-01-17 19:44 | RADIOLOGY REPORT ---
COMPUTERIZED TOMOGRAPHY ABDOMEN AND PELVIS WITHOUT CONTRAST REASON FOR EXAM: right sided abd pain COMPARISON: None TECHNIQUE: Spiral scans were acquired from the diaphragm to the symphysis pubis without intravenous c ontrast administration. 2-D coronal and sagittal reformatted images were provided. Radiation optimiza tion: All CT scans at this facility use at least one of these dose optimization techniques: Automated exposure control mA and/or kV adjustment per patient size (includes targeted exams where dose is mat ched to clinical indication) or iterative reconstruction. RADIATION DOSE: CTDI: 16 mGy DLP: 810 mGy-cm FINDINGS: There is mild dependent atelectasis in bilateral lower lobes of the lungs. There is no pleural effus ion. There is no pericardial effusion. The spleen is not enlarged. The liver is normal in size and contour. The liver is diffusely hypoatte nuating. The gallbladder is surgically absent. Evaluation of the abdominal organs is suboptimal in t he absence of intravenous contrast. Unenhanced appearance of the pancreas is grossly unremarkable. Th ere is a very small hiatal hernia. The adrenal glands are normal. The kidneys are similar in size. T here is no hydronephrosis of either kidney. There is no renal, ureteral, or bladder calculus. There i s no pathologic lymphadenopathy in the abdomen or pelvis by size criteria within the limitations of t his noncontrast study. The urinary bladder is grossly unremarkable. The uterus and ovaries are withi n normal limits. There is no significant colonic stool burden. The appendix is surgically absent. Th ere is no pathologic distention of the small bowel. There is no free fluid in the abdomen or pelvis. There is no abdominal aortic aneurysm. There is a fat containing ventral abdominal wall hernia in th e epigastric region with a 1.8 cm fascial defect. No acute osseous abnormality is identified. IMPRESSION: The gallbladder and appendix are surgically absent. No evidence of bowel obstruction. Ventral abdominal wall hernia in the epigastric region with a 1.5 cm fascial defect. Very small hiatal hernia.
[2025-01-17] MEDS: acetaminophen 1,000mg/100ml IV 100 ML IV ONE (19:45)
[2025-01-17 19:52] VITALS: BP 100/72; PULSE 65; RESP 12; O2SAT 98
[2025-01-17] MEDS: potassium Cl 20 mEq SR tablet PO STA (19:52)
[2025-01-17] MEDS ORDERED: POTA-207 PO (20:02)
[2025-01-17] MEDS ORDERED: PROC-8 PO (20:02)
[2025-01-17] MEDS ORDERED: METO5TAB98 PO (20:06)
[2025-01-17] MEDS: ondansetron/PF 4mg/2ml inj IV ONE (20:48)
== END 2025-01-17 20:57 | disposition home or self-care (01) ==
LOC: ER 17:47
DX: R11.2 Nausea with vomiting, unspecified (principal); R10.9 Unspecified abdominal pain; E87.6 Hypokalemia; I27.20 Pulmonary hypertension, unspecified; F41.9 Anxiety disorder, unspecified; F32.A Depression, unspecified; I50.9 Heart failure, unspecified; Z85.3 Personal history of malignant neoplasm of breast; Z88.8 Allergy status to other drugs, medicaments and biological substances; Z90.49 Acquired absence of other specified parts of digestive tract
CPT/HCPCS: 36415; 71045; 74176; 80053; 83605; 83690; 84145; 85025; 87040; 96365; 96375; 99285; J0131; J1200; J2405; J2765; J3010; 85007

== ENCOUNTER 2025-02-02 16:44 | Inpatient (IN) | payer MEDICAID ==
[~2025-02-02] VITALS: Ht 172.7 cm; Wt 72.5 kg
[~2025-02-02 16:44] MED LIST changes: +METO5TAB98 PO; +POTA-207 PO
--- NOTE | 2025-02-02 16:57 | ELECTROCARDIOGRAPH REPORT ---
[facility] Test Date: 2025-02-02 Test Time: 16:50:33 Pat Name: LEIDY MAN Department: EMERGENCY ROOM Room: Gender: F [employer]agger: : 1975 Requested By: YUE ROGER Order Number: [id number] Reading MD: Measurements Intervals [place] Rate: 109 P: 79 TX: 158 QRS: 150 QRSD: 159 T: 15 QT: 320 QTc: 431 Interpretive Statements Sinus tachycardia Probable left atrial enlargement Nonspecific intraventricular conduction delay Nonspecific ST depression Artifact in lead(s) I,II,III,aVR,aVL,aVF,V1,V2,V3,V4,V5,V6 Please click the below link to view image of tracing.
--- NOTE | 2025-02-02 17:17 | RADIOLOGY REPORT ---
CHEST RADIOGRAPH Indication: EPIGASTRIC PAIN Technique: Single frontal view of the chest was obtained COMPARISON: DI CHEST,SINGLE VIEW on DOS: 01/17/25, DI CHEST,SINGLE VIEW on DOS: 10/23/24, DI CHEST,SING LE VIEW on DOS: 09/22/24, DI CHEST,SINGLE VIEW on DOS: 07/25/24, DI CHEST,SINGLE VIEW on DOS: 05/13/24 FINDINGS: Lines and Tubes: None Lungs: Clear Pleura: No effusion. No pneumothorax. Cardiomediastinal contours: Unremarkable Bones: Unremarkable IMPRESSION: No acute disease.
--- NOTE | 2025-02-02 17:39 | Physician Documentation ---
History of Present Illness ~ Chief Complaint: Bloody Emesis Stated Complaint: THROWING UP BLOOD Time Seen by MD: 18:36 Primary Medical Doctor: Claudette SINGH Patient is seen today with complaints of multiple episodes of hematemesis today as well as severe epigastric abdominal pain. Patient has complicated medical history complicated for CHF, pulmonary hypertension, patient states she is on palliative care, patient admits to drinking daily. Patient states she is on palliative care for breast cancer and pulmonary hypertension and congestive heart failure and states she is waiting for a heart transplant. Medication Reconciliation Allergies: Coded Allergies: butorphanol tartrate (Unverified Allergy, Unknown, 01/17/25) prochlorperazine maleate (Unverified Allergy, Unknown, 01/17/25) Scheduled Furosemide (Furosemide), 1 TAB PO BID, (Reported) Lorazepam (Ativan), 1 TAB PO PRN, (Reported) Macitentan/Tadalafil (Opsynvi 10-20 mg Tablet), 10 MG PO DAILY, (Reported) Mirtazapine (Remeron), 1 TAB PO HS, (Reported) Morphine Sulfate ER (Morphine Sulfate ER), 30 MG PO Q8H, (Reported) Ondansetron 8mg ODT (Ondansetron Odt), 1 TAB PO Q6H, (Reported) Tadalafil* (Cialis*), 10 MG PO HS, (Reported) Scheduled PRN Hydroxyzine Hcl* (Atarax*), 1 TAB PO PRN PRN for for anxiety/agitation, (Reported) Metoclopramide Hcl* (Reglan*), 1-2 TAB PO Q6H PRN PRN for pain Oxycodone HCl/Acetaminophen (Percocet 10-325 mg Tablet), 1 TAB PO Q4H PRN for pain, (Reported) Discontinued Medications Carvedilol (Carvedilol), 3.125 MG PO BID Discontinued Reason: patient no longer taking Losartan Potassium (Losartan Potassium), 12.5 MG PO DAILY Discontinued Reason: patient no longer taking Pantoprazole Sodium (Pantoprazole Sodium), 40 MG PO DAILY Discontinued Reason: patient no longer taking Potassium Chloride* (K-Dur*), 1 TAB PO Q12H Discontinued Reason: patient no longer taking Sildenafil Citrate (Sildenafil), 1.5 TAB PO BID, (Reported) Discontinued Reason: patient no longer taking Past Medical History Past Medical History: Congestive Heart Failure, Pulmonary HTN, Anxiety, Depression Past Surgical History: appendectomy, cholecystectomy, other Alcohol Use: None Drug Use: none Lives with: Other Lives In: Home Occupation: employed Review of Systems Constitutional: Denies: chills, fever, weakness Eyes: Denies: pain, blurred vision ENT: Denies: ear pain, nose pain, throat pain, mouth pain Respiratory: Denies: cough, shortness of breath Cardiovascular: Denies: chest pain, palpitations Gastrointestinal: Denies: abdominal pain, nausea, vomiting Genitourinary: Denies: burning, dysuria Female Genitalia: Denies: vaginal discharge, pelvic pain Neurological: Denies: headache, dizziness Musculoskeletal: Denies: pain, swelling Integumentary: Denies: rash, lesions Allergic/Immunologic: Denies: hives, itching Hematologic/Lymphatic: Denies: no symptoms reported Psychiatric: Denies: depression, anxiety Physical Exam Vital Signs: Temperature: 97.5, Source: Temporal, Heart Rate: 119, Respiratory Rate: 20, BP: 105/78, Pulse Oximetry: 96, Weight: 72.500 Oxygen Flow Rate: 0 Physical Exam General: Awake and Alert, no acute distress. HEENT: Conjunctiva pink, Sclera clear, Mucus Membranes moist. Neck: Supple without masses and tenderness. Resp: Unlabored. Lungs clear to auscultation bilaterally. Heart: Regular Rate and rhythm, normal S1 and S2 without murmur, rub or gallop. Abdomen: Patient on exam has significant tenderness to palpation in the epigastric area with guarding and without rebound. Abdomen is nondistended, abdomen is soft. Extremities: No cyanosis,clubbing or edema. Skin: Warm and Dry. Progress Results/Orders Results/Orders Orders - TRUONG DURANT PAC Saline Lock (02/02/25 ) Ct Chest Abdomen Pelvis Iv Con (02/02/25 21:20) Page Hospitalist (02/02/25 19:46) Fill Out Med Reconciliation (02/02/25 19:46) Completed Orders - TRUONG DURANT PAC Pantoprazole 40mg Iv (Protonix 40mg Iv) (02/02/25 19:02) Lidocaine 2% Viscous (Xylocaine 2% Visco (02/02/25 19:02) Ondansetron Inj. (Zofran 4mg/2ml Vial) (02/02/25 19:02) Mag & Alum Hydrox/Simeth Susp (Maalox Or (02/02/25 19:05) Morphine 4mg/Ml Inj. (Morphine Inj.) (02/02/25 19:02) Ct Chest Abdomen Pelvis Iv Con (02/02/25 21:20) Medications Received in ER Medications (Trade) Dose Ordered Sig/Deanna Route PRN Reason Start Time Stop Time Status Last Admin Dose Admin (Protonix 40mg IV) 40 mg ONCE STAT IV 02/02/25 19:02 02/02/25 19:08 DC 02/02/25 20:08 40 MG (Xylocaine 2% Viscous 15mL cup) 30 ml ONCE STAT MM 02/02/25 19:02 02/02/25 19:09 DC 02/02/25 20:08 30 ML (Zofran 4mg/2ml vial) 8 mg ONCE STAT IV 02/02/25 19:02 02/02/25 19:08 DC 02/02/25 20:06 8 MG (Maalox oral suspension) 30 ml ONCE ONCE PO 02/02/25 19:05 02/02/25 19:08 DC 02/02/25 20:08 30 ML (morphine inj.) 8 mg ONCE STAT IV 02/02/25 19:02 02/02/25 19:08 DC 02/02/25 20:09 8 MG Vital Signs 02/02/25 02/02/25 02/02/25 02/02/25 16:52 18:54 18:56 19:56 Temp 97.5 Pulse 119 104 89 Resp 20 24 24 19 B/P (MAP) 105/78 125/90 (102) 125/76 (92) Pulse Ox 96 95 98 O2 Flow Rate 0 0 02/02/25 20:09 Resp 16 Laboratory Tests Test 02/02/25 17:23 White Blood Count 9.8 Red Blood Count 5.25 Hemoglobin 17.4 H Hematocrit 50.6 H Mean Corpuscular Volume 96.2 Mean Corpuscular Hemoglobin 33.1 H Mean Corpuscular Hemoglobin Concent 34.4 Red Cell Distribution Width 13.8 Platelet Count 300 Mean Platelet Volume 8.6 Neutrophils (%) (Auto) 77.3 H Lymphocytes (%) (Auto) 13.8 L Monocytes (%) (Auto) 8.4 Eosinophils (%) (Auto) 0.3 Basophils (%) (Auto) 0.2 Neutrophils # (Auto) 7.6 Lymphocytes # (Auto) 1.4 Monocytes # (Auto) 0.8 Eosinophils # (Auto) 0.0 Basophils # (Auto) 0.0 CBC Comment Sodium Level 141 Potassium Level 4.0 Chloride Level 105 Carbon Dioxide Level 23.0 L Anion Gap 13 Blood Urea Nitrogen 4 L Creatinine 0.68 Estimated GFR/1.73 m2 > 90 BUN/Creatinine Ratio 5.9 L Glucose Level 105 H Calcium Level 9.3 Total Bilirubin 0.6 Aspartate Amino Transf (AST/SGOT) 65 H Alanine Aminotransferase (ALT/SGPT) 46 Alkaline Phosphatase 124 H Total Protein 10.2 H Albumin 3.4 Globulin 6.8 H Albumin/Globulin Ratio 0.5 L Lipase 22 Chemistry Comments EKG/XRAY/CT/US/VASC/MRI Chest X-Ray : Additional Comments Chest x-ray interpreted by myself today shows no large effusion, no large infiltrate, normal mediastinum. DIAGNOSTIC RADIOLOGY Patient: LEIDY MAN Medical Record: [id number] [facility] : 1975, Age: 50 Sex: Female Location: ER Patient Status: [facility] ER Service Date/Time: 02/02/251703 Ordering Physician: YUE ROGER DO Exam: CHEST,SINGLE VIEW CHEST RADIOGRAPH Indication: EPIGASTRIC PAIN Technique: Single frontal view of the chest was obtained COMPARISON: DI CHEST,SINGLE VIEW on DOS: 01/17/25, DI CHEST,SINGLE VIEW on DOS: 10/23/24, DI CHEST,SINGLE VIEW on DOS: 09/22/24, DI CHEST,SINGLE VIEW on DOS: 07/25/24, DI CHEST,SINGLE VIEW on DOS: 05/13/24 FINDINGS: Lines and Tubes: None Lungs: Clear Pleura: No effusion. No pneumothorax. Cardiomediastinal contours: Unremarkable Bones: Unremarkable IMPRESSION: No acute disease. Electronically Signed by:KIRT ERVIN MD Date & Time: 02/02/251714 Dictated by: KIRT ERVIN MD Dictation date and time: 02/02/25 170 Primary Care Provider: NO PRIMARY CARE PROVIDER cc: YUE ROGER DO ~ CT : Impression CAT SCAN Patient: LEIDY MAN Medical Record: [id number] [facility] : 1975, Age: 50 Sex: Female Location: [facility] Patient Status: ADM IN Service Date/Time: 02/02/252119 Ordering Physician: TRUONG DURANT PAC Exam: CT CHEST ABDOMEN PELVIS IV CON CT SCAN CHEST ABDOMEN AND PELVIS WITH CONTRAST CLINICAL HISTORY: Abd pain and chest pain TECHNIQUE: Helical axial images are obtained from the thoracic inlet through the pelvis with intravenous contrast. Coronal and sagittal reformatted images were generated. One or more of the following radiation dose reduction techniques were used for this examination: automated exposure control, adjustment of the mA and/or kV according to patient size, use of iterative reconstruction technique. COMPARISON: None Dose: CTDI vol: 16 mGy, DLP: 1414.46 mGy.cm FINDINGS: CHEST: Mediastinum: The heart is mildly enlarged. No pericardial effusion. No coronary artery calcifications. Dilated main pulmonary artery measuring up to 3.9 cm suggesting pulmonary arterial hypertension in the appropriate clinical setting. No CT evidence of central pulmonary embolism. The aorta is unremarkable. Lung parenchyma: Mild scattered atelectasis/scarring. Pleura: No pleural effusion. Chest wall and axillae: Unremarkable. ABDOMEN AND PELVIS: Liver: Negative. Gallbladder and biliary system: Gallbladder is surgically absent. Pancreas: Negative. Spleen: Negative. Adrenal Glands: Negative. Kidneys and collecting system: No hydronephrosis or nephrolithiasis. Retroperitoneum: No evidence of aortic aneurysm. Small fluid in the pelvis. Lymph nodes: Negative. Bowel: No evidence of bowel obstruction. Fluid-filled appearance of the large and small bowel. Submucosal fat deposition is seen in the terminal ileum. There is mild wall thickening and hyperemia about the distal small bowel. No CT evidence of appendicitis. Pelvis: No urinary bladder stone. Osseous structures: Unremarkable. IMPRESSION: 1. Fluid-filled small and large bowel suggesting diarrheal illness in the appropriate clinical setting. Wall thickening and hyperemia particularly about the distal small bowel and to a lesser extent the large bowel raising the possibility of an enterocolitis in the appropriate clinical setting. 2. Additional findings as detailed. Electronically Signed by:BOSTON MCRAE MD Date & Time: 02/02/252145 Dictated by: BOSTON MCRAE MD Dictation date and time: 02/02/252145 Primary Care Provider: NO PRIMARY CARE PROVIDER cc: TRUONG DURANT PAC ~ Medical Decision Making Findings Patient is seen today with complaints of multiple episodes of hematemesis today as well as severe epigastric abdominal pain. Patient has complicated medical history complicated for CHF, pulmonary hypertension, patient states she is on palliative care, patient admits to drinking daily. Patient states she is on palliative care for breast cancer and pulmonary hypertension and congestive heart failure and states she is waiting for a heart transplant. Patient states she is currently on heavy doses of narcotics daily and actually vomited up her dose of narcotic pain medications this morning. With the patient's extensive and complicated medical past history, as well as laboratory findings, I did consult with hospitalist and patient will be admitted for further eval and treatment. I did treat patient with nausea meds in morphine 8 mg IV, as well as antacid Protonix 40 mg IV. Departure Disposition: ADMITTED INPATIENT Admitted to Inpatient Unit: to hospitalist Admission Level of Care: Med/Surg with Tele Impression: Primary Impression: Hematemesis Qualified Codes: K92.0 - Hematemesis Additional Impression: Abdominal pain Qualified Codes: R10.13 - Epigastric pain Condition: Improved Discharge Instructions: Hematemesis Additional Instructions: With the patient's extensive and complicated medical past history, as well as laboratory findings, I did consult with hospitalist and patient will be admitted for further eval and treatment. I did treat patient with nausea meds in morphine 8 mg IV, as well as antacid Protonix 40 mg IV. Referrals: NO PRIMARY CARE PROVIDER (PCP) Signature Scribe Signature: No scribe Attestation: No scribe TRUONG DURANT PAC Feb 02, 2025 17:39
[2025-02-02 17:44] LABS: MEAN PLATELET VOLUME 8.6 FL (7.4-10.4); RED CELL DISTRIBUTION WIDTH 13.8 % (11.5-14.5)
[2025-02-02 17:54] LABS: CREATININE 0.68 MG/DL (0.40-0.90); TOTAL CARBON DIOXIDE 23.0 MMOL/L (24-32); eCRCL 100 ML/MIN; eGFR > 90 ML/MIN
[2025-02-02] MEDS: ondansetron/PF 4mg/2ml inj IV STA (20:06)
[2025-02-02] MEDS: mag hydrox/Alum hydrox/simeth 30ml oral suspension PO ONE (20:08)
[2025-02-02] MEDS: LIDOcaine 2% Viscous 15ml cup MM STA (20:08)
[2025-02-02] MEDS: morphine 4 MG/ML inj SYRINge IV STA (20:09)
[2025-02-02] MEDS ORDERED: iohexol 300mg/ml 100ml inj. ONE (20:46)
[2025-02-02] MEDS ORDERED: [UNRECOGNIZED DRUG - CODE] PO (21:01)
[2025-02-02] MEDS ORDERED: TADA5TAB2 PO (21:01)
[2025-02-02] MEDS ORDERED: MIRT-142 PO (21:01)
[2025-02-02] MEDS ORDERED: LORA-269 PO (21:01)
[2025-02-02] MEDS ORDERED: HYDR-3686 PO (21:01)
[2025-02-02] MEDS ORDERED: MORP50CA PO (21:05)
[2025-02-02] MEDS ORDERED: OXYC-150 PO (21:05)
--- NOTE | 2025-02-02 21:49 | RADIOLOGY REPORT ---
CT SCAN CHEST ABDOMEN AND PELVIS WITH CONTRAST CLINICAL HISTORY: Abd pain and chest pain TECHNIQUE: Helical axial images are obtained from the thoracic inlet through the pelvis with intraven ous contrast. Coronal and sagittal reformatted images were generated. One or more of the following [facility] dose reduction techniques were used for this examination: automated exposure control, adjustm ent of the mA and/or kV according to patient size, use of iterative reconstruction technique. COMPARISON: None Dose: CTDI vol: 16 mGy, DLP: 1414.46 mGy.cm FINDINGS: CHEST: Mediastinum: The heart is mildly enlarged. No pericardial effusion. No coronary artery calcification s. Dilated main pulmonary artery measuring up to 3.9 cm suggesting pulmonary arterial hypertension in the appropriate clinical setting. No CT evidence of central pulmonary embolism. The aorta is unremar kable. Lung parenchyma: Mild scattered atelectasis/scarring. Pleura: No pleural effusion. Chest wall and axillae: Unremarkable. ABDOMEN AND PELVIS: Liver: Negative. Gallbladder and biliary system: Gallbladder is surgically absent. Pancreas: Negative. Spleen: Negative. Adrenal Glands: Negative. Kidneys and collecting system: No hydronephrosis or nephrolithiasis. Retroperitoneum: No evidence of aortic aneurysm. Small fluid in the pelvis. Lymph nodes: Negative. Bowel: No evidence of bowel obstruction. Fluid-filled appearance of the large and small bowel. Submu cosal fat deposition is seen in the terminal ileum. There is mild wall thickening and hyperemia abou t the distal small bowel. No CT evidence of appendicitis. Pelvis: No urinary bladder stone. Osseous structures: Unremarkable. IMPRESSION: 1. Fluid-filled small and large bowel suggesting diarrheal illness in the appropriate clinical settin g. Wall thickening and hyperemia particularly about the distal small bowel and to a lesser extent th e large bowel raising the possibility of an enterocolitis in the appropriate clinical setting. 2. Additional findings as detailed.
[2025-02-02 22:00] VITALS: BP 113/66; PULSE 78; RESP 18; TEMP 98.1; O2SAT 100
[2025-02-02] MEDS: normal saline 1000ml 1,000 ML IV SCH (23:05)
[2025-02-02] MEDS ORDERED: ONDA-245 PO (23:24)
[2025-02-03] MEDS ORDERED: magnesium hydroxide 30ml (MOM) UD suspension PO PRN (00:25)
[2025-02-03] MEDS: PERFLUTREN PROTEIN-A MICROSPHR (Optison) 0.22 MG/ML 3ML VIAL IV ONE (00:25)
[2025-02-03] MEDS ORDERED: magnesium sulf-water 2g/50mL 50 ML IV PRN (00:25)
[2025-02-03] MEDS ORDERED: magnesium sulf-water 4G/100mL 100 ML IV PRN (00:25)
[2025-02-03] MEDS ORDERED: potassium Cl 40MEQ/1/2NS 520ml 520 ML IV PRN (00:25)
[2025-02-03] MEDS ORDERED: magnesium Cl slow-release 64mg tablet PO PRN (00:25)
[2025-02-03] MEDS ORDERED: mag hydrox/Alum hydrox/simeth 30ml oral suspension PO PRN (00:25)
[2025-02-03] MEDS ORDERED: potassium Cl 20 mEq SR tablet PO PRN (00:25)
--- NOTE | 2025-02-03 00:37 | HISTORY AND PHYSICAL-Residence ---
History & Physical Providers to CC Resident Creating Document: GOLDY REICH, RES CC: JENNIFFER MAYA MD ~ History of Present Illness Primary Medical Doctor: BRAD Reason for Admit\Complaint: Abdominal pain, nausea, vomitings History of Present Illness 50-year-old female with a past medical history of pulmonary hypertension, right ventricular heart failure and invasive ductal carcinoma of the left breast presented to the ED in view of abdominal pain, nausea vomitings and diarrhea. Patient states that she has 8/10 stabbing pain in the epigastrium with no radiation, no aggravating or relieving factors. Patient had associated nausea and vomitings, patient had multiple episodes of vomitings today. Patient also had four bouts of bloody vomitings. Patient endorses loose stools which were watery. Patient denies recent hospitalization, antibiotic use or PPI use. Patient denies similar symptoms in the family, domestic or international travel. Patient does not remember if she had undergone upper GI endoscopy colonoscopy in the past. Allergies: Coded Allergies: butorphanol tartrate (Unverified Allergy, Unknown, 01/17/25) prochlorperazine maleate (Unverified Allergy, Unknown, 01/17/25) Home Medications Home Medications Active Reglan* (Metoclopramide HCl) 5 Mg Tablet 1-2 Tab PO Q6H PRN PRN Reported Ondansetron Odt (Ondansetron HCl) 8 Mg Tab.rapdis 1 Tab PO Q6H 3 Days Percocet 10-325 mg Tablet (Oxycodone HCl/Acetaminophen) 10 Mg-325 Mg Tablet 1 Tab PO Q4H PRN 5 Days Morphine Sulfate ER (Morphine Sulfate) 50 Mg Cap.er.pel 30 Mg PO Q8H 30 Days Ativan (Lorazepam) 1 Mg Tablet 1 Tab PO PRN 30 Days Atarax* (Hydroxyzine HCl) 25 Mg Tablet 1 Tab PO PRN PRN 30 Days Remeron (Mirtazapine) 15 Mg Tablet 1 Tab PO HS 30 Days Opsynvi 10-20 mg Tablet (Macitentan/Tadalafil) 10 Mg-20 Mg Tablet 10 Mg PO DAILY Cialis* (Tadalafil*) 5 Mg Tablet 10 Mg PO HS 30 Days Furosemide 40 Mg Tablet 1 Tab PO BID Past Medical History Past Medical History Pulmonary hypotension Right ventricular heart failure Invasive ductal carcinoma who was previously on tamoxifen but could not tolerated HTN Endometriosis Past Surgical History Surgical History Comment Cholecystectomy Appendectomy Past Social History Social History Comment Quit smoking 5-6 years ago smoked one pack per day for the last 30 years Consumes wine every day 1-2 glasses Does not consume marijuana or illicit drugs Goes to [facility] for pulmonary hypertension 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 Smoking: Cigarettes Alcohol Use: None Drug Use: None Lives with: Other Lives In: Home Occupation: employed ROS ROS All other systems reviewed in full and negative except for the pertinent positives mentioned in the HPI Constitutional: Denies: chills, fever, weakness Eyes: Denies: pain, blurred vision ENT: Denies: ear pain, nose pain, throat pain, mouth pain Respiratory: Denies: cough, shortness of breath Cardiovascular: Denies: chest pain, palpitations Gastrointestinal: Denies: abdominal pain, nausea, vomiting Genitourinary: Denies: burning, dysuria Neurological: Denies: headache, dizziness Musculoskeletal: Denies: pain, swelling Integumentary: Denies: rash, lesions Allergic/Immunologic: Denies: hives, itching Hematologic/Lymphatic: Denies: no symptoms reported Psychiatric: Denies: depression, anxiety Exam Vitals: Vital Signs Date Time Temp Pulse Resp B/P (MAP) Pulse Ox O2 Delivery O2 Flow Rate FiO2 02/03/25 00:07 17 02/02/25 22:00 98.1 78 113/66 (82) 100 Room Air 02/02/25 20:47 0 General: General: Alert, awake, oriented, not in acute distress HEENT: PERRLA, no icterus, pallor, lymphadenopathy, carotid bruit Respiratory system: Bilateral vesicular breath sounds heard, no adventitious breath sounds CVS: S1-S2 heard, no murmurs/rubs/gallop GI: Generalized tenderness, Soft, no organomegaly, no guarding/rigidity, sluggish bowel sounds present Neuro: No focal neurological deficits present Extremities: No edema cyanosis clubbing/deformities Skin: Warm and dry Diagnostic Data Last Recorded Lab Results: 02/02/25 1723 02/02/25 1723 Advance Care Planning Advanced Care plannin - 30 Minutes (I spent 20 minutes discussing various resuscitative measures. Patient decided to be full code but patient considering palliative care for pain management and is not hospice) Additional Plan Assessment: A 50-year-old female with past medical history of pulmonary hypertension right and ventricle heart failure presented to the ED in view of abdominal pain, nausea vomitings and loose stools. Patient was admitted for the evaluation management of enterocolitis. Plan: Acute Enterocolitis Pancreatitis, ruled out C diff, rule out CT abdomen/pelvis: Fluid-filled small and large bowel suggesting diarrheal illness in the appropriate clinical setting. Wall thickening and hyperemia particularly about the distal small bowel and to a lesser extent the large bowel raising the possibility of an enterocolitis in the appropriate clinical setting. Pain management, IV Zofran 4 mg q.6h IV fluids at 150cc/hour Lipase normal Follow up with ESR, COVID and influenza, stool studies, procalcitonin H&H stable Patient might need GI consult ST continues to have bloody vomitings a drop in hemoglobin of hemodynamic instability Advance diet as tolerated Hyperproteinemia Probably secondary to hemoconcentration Re-evaluate after adequate resuscitation Might need evaluation for multiple myeloma if the patient continues to have protein levels Pulmonary hypertension Right heart failure Continue Opsynvi 10-20 mg tablet, tadalafil 5 mg Follow up with echo and proBNP Titrate Lasix as required Hemo concentration Elevated H/H Continue IV fluid resuscitation and repeat CBC with differential Invasive ductal carcinoma Outpatient management HTN Not on any antihypertensives at home Anxiety/depression Continue mirtazapine and nitrites Code status: Full code Diet: NPO DVT prophylaxis: Heparin Disposition: Admit to surgical unit, follow up with stool studies Goldy Reich MD Internal Medicine, PGY 2 I agree with the assessment and plan by the resident as documented above with no changes and discussed the case with them. Jenniffer Maya MD Critical Care Date of Service: Feb 03, 2025 Billing Provider: JENNIFFER MAYA MD, SIVA, RES Feb 03, 2025 00:37 JENNIFFER MAYA MD Feb 03, 2025 03:54
[2025-02-03] MEDS: normal saline 1000ml 1,000 ML IV SCH (00:54)
[2025-02-03 06:00] VITALS: BP 110/71; PULSE 90; RESP 20; TEMP 97.8; O2SAT 92
[2025-02-03 06:01] LABS: PRO BRAIN NATRIURETIC PEPTIDE 247.0 PG/ML (0-125)
[2025-02-03] MEDS: docusate sod 100mg capsule PO SCH (08:00)
[2025-02-03] MEDS: K and/or MAG REPLACEMENT MC SCH (08:00)
[2025-02-03] MEDS: MACITENTAN PO SCH (08:00)
[2025-02-03] MEDS: TADALAFIL PO SCH (08:00)
[2025-02-03] MEDS: heparin, porcine 5000 units/ml vial SQ SCH (08:01)
[2025-02-03] MEDS: ondansetron/PF 4mg/2ml inj IV PRN (08:20)
[2025-02-03 10:00] VITALS: BP 97/72; PULSE 74; RESP 17; TEMP 98.5; O2SAT 99
[2025-02-03 10:27] LABS: CREATININE 0.74 MG/DL (0.40-0.90); PHOSPHORUS 3.0 MG/DL (2.3-4.5); TOTAL CARBON DIOXIDE 24.3 MMOL/L (24-32); eCRCL 92 ML/MIN; eGFR 83 ML/MIN
[2025-02-03] MEDS: HYDROcodone/acetaminophen 5mg/325mg tablet PO PRN (10:37)
[2025-02-03 10:48] LABS: C DIFF ANTIGEN NEGATIVE (NEGATIVE); C DIFF SPECIMEN=DIARRHEA? ACCEPTABLE; C DIFFICILE TOXINS A&B NEGATIVE (Neg)
--- NOTE | 2025-02-03 10:54 | PROGRESS NOTE ---
Daily Progress Note Providers to CC ~ Yepez-Non Protocol Yepez Indications Met/Not Met: F/C Indications Met Antibiotic Timeout Antibiotic Ordered?: Yes Subjective No acute events overnight. Patient examined at bedside. No new complaints, not in acute distress. Patient denies chest pain, sob, palpitations. No abdominal pain, n/v/d since admission. Lipase wnl, wbc wnl, negative procal, RFT unremarkable. CT abdomen/pelvis shows enterocolitis. C.diff negative, awaiting stool culture and UA. Patient uncooperative. 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 Patient was admitted for the evaluation management of enterocolitis. Assessment Acute Enterocolitis Sepsis 2/2 enterocolitis- POA Acute urinary retention- POA Polycythemia Pulmonary hypertension Hypertension Chronic heart failure- follow TTE Pancreatitis- ruled out C diff- ruled out -lipase wnl, wbc wnl, negative procal, c.diff negative, CT abdomen/pelvis shows enterocolitis, no hydronephrosis or nephrolithiasis. Invasive ductal carcinoma- outpatient management Anxiety disorder Plan -start Zosyn, amlodipine, supportive care, follow stool culture, UDS, UA, TTE Code status: Full code DVT prophylaxis: Heparin Date of Service: Feb 03, 2025 Billing Provider: ESA ROMERO COMMERCIAL RELIEF DRIVER Common Visit Codes: 86398-JLEMFXLANH INP/OBS CARE(HIGH) ESA ROMERO [facility] Feb 03, 2025 10:54
[2025-02-03] MEDS: potassium Cl 20 mEq SR tablet PO PRN (13:13)
[2025-02-03] MEDS: LidoCAINE 2% Topical Jelly 11mL syringe (UROJET) TOP ONE (15:45)
[2025-02-03] MEDS: normal saline 1000ml 1,000 ML IV ONE ×2 (16:10→17:42)
[2025-02-03] MEDS: piperacillin/tazo 3.375gm/50ml 50 ML IV SCH (16:57)
[2025-02-03 17:41] LABS: URINE HCG NEGATIVE (NEG)
[2025-02-03 17:53] LABS: URINE AMPHETAMINE SCREEN POSITIVE (Neg); URINE BARBITUATE SCREEN NEGATIVE (Neg); URINE BENZODIAZEPINES SCREEN NEGATIVE (Neg); URINE CANNABINOID SCREEN NEGATIVE (Neg); URINE COCAINE SCREEN NEGATIVE (Neg); URINE METHADONE SCREEN NEGATIVE (Neg); URINE OPIATE SCREEN POSITIVE (Neg); URINE PHENCYCLIDINE SCREEN NEGATIVE (Neg)
[2025-02-03 18:00] VITALS: BP 113/69; PULSE 56; RESP 17; TEMP 97.5; O2SAT 97
[2025-02-03 18:09] LABS: LEUKOCYTE ESTERASE ,URINE NEGATIVE (Neg); NITRITES, URINE NEGATIVE (Neg); OCCULT BLOOD,URINE NEGATIVE (Neg)
[2025-02-03 18:32] LABS: UA COLLECTION TYPE FOLEY CATH
[2025-02-03 18:33] LABS: SQUAMOUS EPITHELIAL CELL,UR NONE SEEN /LPF (FEW)
[2025-02-03 20:00] VITALS: RESP 17; O2SAT 97
[2025-02-03] MEDS: TADALAFIL 10 MG PO SCH (20:36)
[2025-02-03 22:00] VITALS: BP 105/61; PULSE 71; RESP 20; TEMP 98.1; O2SAT 94
[2025-02-03 23:06] VITALS: BP 142/58; PULSE 80; RESP 22; TEMP 100.1; O2SAT 93
[2025-02-04 06:00] VITALS: BP 118/62; PULSE 65; RESP 19; TEMP 98.2; O2SAT 94
[2025-02-04 08:00] VITALS: RESP 16; O2SAT 98
[2025-02-04 10:00] VITALS: BP 111/54; PULSE 58; RESP 17; TEMP 98.3; O2SAT 98
[2025-02-04 10:36] LABS: MEAN PLATELET VOLUME 9.9 FL (7.4-10.4); RED CELL DISTRIBUTION WIDTH 13.8 % (11.5-14.5)
[2025-02-04 12:16] LABS: CHOL/HDL RATIO 2.2 (0.00-4.99); CREATININE 0.75 MG/DL (0.40-0.90); LDL CHOLESTEROL 48 MG/DL (50-100); TOTAL CARBON DIOXIDE 22.5 MMOL/L (24-32); eCRCL 91 ML/MIN; eGFR 82 ML/MIN
[2025-02-04] MEDS ORDERED: CEFD300C3 PO (13:35)
[2025-02-04] MEDS ORDERED: METR-159 PO (13:35)
[2025-02-04 16:19] VITALS: RESP 18
--- NOTE | 2025-02-04 18:16 | DISCHARGE SUMMARY ---
Discharge Summary Providers to CC ~ Discharge Summary Admission Diagnosis: sepsis, gastroenteritis, UTI Hospital Course DATE OF ADMISSION: 02/02/25 DATE OF DISCHARGE: 02/04/25 Discharge Diagnosis\\Comment: Sepsis 2/2 viral enterocolitis and UTI Acute Enterocolitis UTI- POA Acute metabolic encephalopathy 2/2 above- POA Acute urinary retention Polycythemia Methamphetamine abuse Opioid abuse Chronic pain syndrome Pulmonary hypertension Hypertension Chronic heart failure Invasive ductal carcinoma- outpatient management Anxiety disorder C diff- ruled out Pancreatitis- ruled out Operations\\Procedures: None Consultants: None Complications: None Condition on DC: Stable New Medications: Cefdinir (Cefdinir) 300 Mg Capsule 1 CAP PO Q12H for 5 Days, #10 CAP 0 Refills Metronidazole* (Flagyl*) 500 Mg Tablet 1 TAB PO TID for 5 Days, #15 TAB Continued Medications: Hydroxyzine Hcl* (Atarax*) 25 Mg Tablet 1 TAB PO PRN PRN for for anxiety/agitation for 30 Days, #60 TAB Lorazepam (Ativan) 1 Mg Tablet 1 TAB PO PRN for 30 Days, #60 TAB 0 Refills Macitentan/Tadalafil (Opsynvi 10-20 mg Tablet) 10 Mg-20 Mg Tablet 1 TAB PO DAILY Metoclopramide Hcl* (Reglan*) 5 Mg Tablet 1-2 TAB PO Q6H PRN PRN for pain, #30 TAB Mirtazapine (Remeron) 15 Mg Tablet 1 TAB PO HS for 30 Days, #30 TAB 0 Refills Ondansetron 8mg ODT (Ondansetron Odt) 8 Mg Tab.rapdis 1 TAB PO Q6H for nausea/vomiting for 3 Days, #12 TAB 0 Refills Oxycodone HCl/Acetaminophen (Percocet 10-325 mg Tablet) 10 Mg-325 Mg Tablet 1 TAB PO Q4H PRN for pain for 5 Days, #20 TAB 0 Refills Discontinued Medications: Furosemide (Furosemide) 40 Mg Tablet 1 TAB PO BID, 0 Refills Morphine Sulfate ER (Morphine Sulfate ER) 50 Mg Cap.er.pel 30 MG PO Q8H for pain for 30 Days, #60 CAP Tadalafil* (Cialis*) 5 Mg Tablet 10 MG PO HS for erectile dysfunction for 30 Days, #30 TAB Discharge Summary: History of Present Illness From H&P: "50-year-old female with a past medical history of pulmonary hypertension, right ventricular heart failure and invasive ductal carcinoma of the left breast presented to the ED in view of abdominal pain, nausea vomitings and diarrhea. Patient states that she has 8/10 stabbing pain in the epigastrium with no radiation, no aggravating or relieving factors. Patient had associated nausea and vomitings, patient had multiple episodes of vomitings today. Patient also had four bouts of bloody vomitings. Patient endorses loose stools which were watery. Patient denies recent hospitalization, antibiotic use or PPI use. Patient denies similar symptoms in the family, domestic or international travel. Patient does not remember if she had undergone upper GI endoscopy colonoscopy in the past." Hospital Course Diagnostic findings were notable for CT abdomen/pelvis revealing enterocolitis, no hydronephrosis or nephrolithiasis, findings of sepsis, UDS positive for amphetamines and opiates, urinalysis positive for urinary tract infection. Pertinent negative findings were normal lipase, negative procal, normal lactic acid, no leukocytosis, negative C diff toxin. Patient was treated with intravenous fluids and empirical antibiotics. Patient was found to have acute urinary retention, hence indwelling catheter was placed. Patient did not experience further complications throughout the entire hospital stay and made a good recovery. Patient did not experience epidosdes of vomiting or diarrhea during the entire hospital stay. The indwelling catheter was discontinued once patient regained cognitive status to her baseline. A subsequent bladder scan showed no retention. Patient was seen and examined on the day of discharge. On day of discharge, vss and labs unremarkable. Blood cultures remained negative until the day of discharge. All labs, diagnostic workups, discharge plan discussed with patient in details during visit before discharge. All questions and concerns answered to the best of my professional knowledge. Patient was discharged with HH and a walker and instructed to follow-up with the PCP within 2 weeks. 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
--- NOTE | 2025-02-05 16:45 | CARDIOLOGY REPORT ---
APPROVED REPORT EXAM: Comprehensive 2D, Doppler, and color-flow Echocardiogram. Patient Location: 356B Blood Pressure: 110/71 mmHg Heart Rate: 62 bpm Rhythm: NSR Indications CHF Hypertension Shaper Set Up Operator is Freida Ramos MD Previous echo 02/14/24 [facility] 40-45% EF ; mod TR 2D Dimensions LA Diam4.3 cm IVSd 1.3 (0.7-1.1cm) LVDd 4.9 cm PWd 1.3 (0.7-1.1cm) IVSs 1.7 (0.8-1.2cm) LVDs 3.3 (2.5-4.0cm) Aortic Root(2D) 3.5 cm PWs 1.8 (0.8-1.2cm) LVOT Diameter 2.28 (1.8-2.4cm) LVEF(%) 60.7 (>50%) Ao Asc Diam.3.66 cmIVC 19.18 mm FS (%) 32.5 % SV 68.0 ml CO 4.1 L/min M-Mode Dimensions MV EPSS 0.9 (<0.5cm) Aortic Valve AoV Peak Nithin. 110.1 cm/s AoV VTI 24.9 cm AO Peak GR. 4.9 mmHg AO Mean GR. 3 mmHg LVOT VTI 23.20 cm LVOT Peak Nithin. 95.9 cm/s MERLYN(VTI)/BSA 3.81 cm2/m2 MERLYN (VTI) 3.81 cm2 Mitral Valve MV E Velocity 98.4 cm/s MV Peak Gr. 4 mmHg MV DECEL TIME 180 ms MV A Velocity 57.2 cm/s MV PHT 64 ms E/A Ratio 1.7 MVA (PHT) 3.44 cm2 MV PHha592.7 cm/s TDI Medial E' P. V 17.01 cm/s E/Medial E' 5.8 Tricuspid Valve TR P. Velocity 301 cm/s RAP ESTIMATE 10 mmHg TR Peak Gr. 36 mmHg RVSP 46 mmHg Pulmonary Vein S1 Velocity 63.9 cm/s D2 Velocity 75.9 cm/s PVa Vbyjfngf68.7 cm/s PVa [id number] msec LEFT VENTRICLE Normal LV size and function. Mild concentric hypertrophy. Overall LVEF is 55-60%. RIGHT VENTRICLE RV appears moderately dilated with reduced contractility. RVSP is estimated at 46 mmHG. ATRIA Left atrium is mildly dilated. AORTIC VALVE Trileaflet AV appears sclerotic without stenosis. No insufficiency. MITRAL VALVE MV is thickened with mild annular thickening and no stenosis. Trace to mild mitral regurgitation. TRICUSPID VALVE The tricuspid valve is normal in structure. Mild to moderate tricuspid regurgitation. PULMONIC VALVE The pulmonary valve is normal in structure. Trace pulmonic regurgitation. GREAT VESSELS The aortic root is normal in size. The ascending aorta is measured at 3.7 cm. The IVC is normal in si ze and collapses >50% with inspiration. PERICARDIUM There is no pericardial effusion. Other Information Study Quality: Adequate Conclusion Overall LVEF is 55-60%. Normal LV size and function. Mild concentric hypertrophy. RV appears moderately dilated with reduced contractility. RVSP is estimated at 46 mmHG. Trileaflet AV appears sclerotic without stenosis. No insufficiency. Trace to mild mitral regurgitation. Mild to moderate tricuspid regurgitation. Trace pulmonic regurgitation. There is no pericardial effusion.
== END 2025-02-04 17:57 | disposition home health service (06) | DRG 720 ==
LOC: ER 16:45 → SUR 3N 20:13
PROVIDERS: ADMIT Internal Medicine Pulmonary Disease; ATTEND Nurse Practitioner Family
PROC: BW251ZZ Computerized Tomography (CT Scan) of Chest, Abdomen and Pelvis using Low Osmolar Contrast (ICD-10-PCS; principal; 2025-02-02)
DX: A41.9 Sepsis, unspecified organism (principal); I27.20 Pulmonary hypertension, unspecified; C50.912 Malignant neoplasm of unspecified site of left female breast; I11.0 Hypertensive heart disease with heart failure; I50.810 Right heart failure, unspecified; E88.09 Other disorders of plasma-protein metabolism, not elsewhere classified; D75.1 Secondary polycythemia; R33.9 Retention of urine, unspecified; F32.A Depression, unspecified; F41.9 Anxiety disorder, unspecified; K52.9 Noninfective gastroenteritis and colitis, unspecified; Z85.3 Personal history of malignant neoplasm of breast; Z90.49 Acquired absence of other specified parts of digestive tract; Z51.5 Encounter for palliative care; Z88.8 Allergy status to other drugs, medicaments and biological substances
CPT/HCPCS: 36415; 71045; 71260; 74177; 80048; 80053; 80061; 80305; 81001; 81025; 82948; 83036; 83605; 83690; 83735; 83880; 84100; 84132; 84145; 85025; 85651; 87040; 87045; 87046; 87081; 87324; 87449; 89055; 93005; 93306; 96365; 96375; 97110; 97116; 97162; 99285; A4314; G0378; J1644; J2060; J2270; J2405; J2470; J2543; J7030; Q0177; Q9956; Q9967

== ENCOUNTER 2025-04-29 09:32 | Emergency (ER) | payer MEDICAID ==
[~2025-04-29] VITALS: Ht 172.7 cm; Wt 69.3 kg
[~2025-04-29 09:32] MED LIST changes: -CARV3.1232 PO; +CEFD300C3 PO; -FURO40TA4 PO; +HYDR-3686 PO; +LORA-269 PO; -LOSA25TA41 PO; -METO5TAB98 PO; +MIRT-142 PO; +ONDA-245 PO; +OXYC-150 PO; -PANT40TA54 PO; -POTA-207 PO; -SILD20TA14 PO; +[UNRECOGNIZED DRUG - CODE] PO
--- NOTE | 2025-04-29 09:46 | ELECTROCARDIOGRAPH REPORT ---
[facility] Test Date: 2025-04-29 Test Time: 09:36:40 Pat Name: LEIDY MAN Department: EMERGENCY ROOM Room: Gender: F Business Consultant: AYAD : 1975 Requested By: JOSH HUNT Order Number: [id number] Reading MD: Dr. Tim Ramírez Measurements Intervals Tinnie Rate: 97 P: 48 NV: 139 QRS: 121 QRSD: 89 T: 7 QT: 348 QTc: 442 Interpretive Statements Sinus rhythm Probable left atrial enlargement Right axis deviation Abnormal T, consider ischemia, anterior leads Electronically Signed On 04-29-2025 21:39:[address] Tim Ramírez Please click the below link to view image of tracing.
--- NOTE | 2025-04-29 10:06 | RADIOLOGY REPORT ---
EXAM: DI CHEST,SINGLE VIEW Indication: CP Technique: Single frontal view of the chest was obtained Comparison: CT CT CHEST ABDOMEN PELVIS IV CON W/ IV CONTRAST on DOS: 02/02/25, DI CHEST,SINGLE VIEW on DOS: 02/02/25, DI CHEST,SINGLE VIEW on DOS: 01/17/25, DI CHEST,SINGLE VIEW on DOS: 10/23/24, DI CHEST,SINGLE VIEW on DOS: 09/22/24 FINDINGS: Lines and Tubes: None Lungs: No focal consolidation. Pleura: No effusion. No pneumothorax. Cardiomediastinal contours: Unremarkable Bones: No acute osseous abnormality. IMPRESSION: No acute cardiopulmonary disease.
[2025-04-29 10:26] LABS: MEAN PLATELET VOLUME 10.1 FL (7.4-10.4); RED CELL DISTRIBUTION WIDTH 13.5 % (11.5-14.5)
[2025-04-29 10:48] LABS: CREATININE 0.67 MG/DL (0.40-0.90); PRO BRAIN NATRIURETIC PEPTIDE 186 PG/ML (0-125); TOTAL CARBON DIOXIDE 28.7 MMOL/L (24-32); eCRCL 101 ML/MIN; eGFR > 90 ML/MIN
--- NOTE | 2025-04-29 12:01 | Physician Documentation ---
History of Present Illness ~ Chief Complaint: Chest Pain Stated Complaint: CP/SOB Time Seen by MD: 10:01 OK to notify your PCP?: Yes Primary Medical Doctor: BRAD Mode of Arrival: POV HPI This is a 50-year-old female patient with a history of pulmonary hypertension right heart failure depression ex-smoker quit 10 years ago who has been follow up at the [facility] for her pulmonary hypertension and right heart failure came to the emergency room because of chest pain and shortness a breath last night. She does use home oxygen 6 L per nasal cannula. She is diagnosed with breast cancer about eight nine months ago and awaiting surgery pending medical clearance from jet man and anesthesiologist. Coal Hauler cleared the patient for surgery and she is awaiting to be seen by anesthesiologist. Chest pain is in the mid chest and sharp pain and also felt like pressure. She says at times she could not breathe. She feels like she is not getting enough air. No nausea vomiting or diaphoresis. Has been ambulatory. No other symptoms. Medication Reconciliation Allergies: Coded Allergies: butorphanol tartrate (Unverified Allergy, Unknown, 01/17/25) prochlorperazine maleate (Unverified Allergy, Unknown, 01/17/25) Scheduled Cefdinir (Cefdinir), 1 CAP PO Q12H Lorazepam (Ativan), 1 TAB PO PRN, (Reported) Macitentan/Tadalafil (Opsynvi 10-20 mg Tablet), 1 TAB PO DAILY, (Reported) Mirtazapine (Remeron), 1 TAB PO HS, (Reported) Ondansetron 8mg ODT (Ondansetron Odt), 1 TAB PO Q6H, (Reported) Scheduled PRN Hydroxyzine Hcl* (Atarax*), 1 TAB PO PRN PRN for for anxiety/agitation, (Reported) Oxycodone HCl/Acetaminophen (Percocet 10-325 mg Tablet), 1 TAB PO Q4H PRN for pain, (Reported) Past Medical History Past Medical History: Congestive Heart Failure, Pulmonary HTN, Anxiety, Depression Past Surgical History: appendectomy, cholecystectomy, other Alcohol Use: None Drug Use: none Lives with: Other Lives In: Home Occupation: employed Physical Exam Vital Signs: Temperature: 97.8, Heart Rate: 80, Respiratory Rate: 16, BP: 117/74, Pulse Oximetry: 98, Weight: 69.300 Oxygen Flow Rate: 0 Progress Results/Orders Results/Orders Orders - JOSH HUNT MD Chest,Single View (04/29/25 09:44) Monitor (04/29/25 09:44) Saline Lock (04/29/25 09:44) Oxygen (04/29/25 09:44) Electrocardiogram (04/29/25 09:44) Completed Orders - JOSH HUNT MD Chest,Single View (04/29/25 09:44) Cbc/Diff (04/29/25 09:44) BMP (04/29/25 09:44) PBNP (04/29/25 09:44) Electrocardiogram (04/29/25 09:44) Hs Troponin I W Calculations (04/29/25 09:44) Hs Troponin I W Calculations (04/29/25 11:44) Hydromorphone 1 Mg/Ml/Pf (Dilaudid Inj.) (04/29/25 12:05) Ondansetron Inj. (Zofran 4mg/2ml Vial) (04/29/25 12:05) Vital Signs 04/29/25 04/29/25 04/29/25 04/29/25 09:39 10:16 11:00 11:03 Temp 97.8 Pulse 100 79 80 Resp 18 15 16 16 B/P (MAP) 131/89 132/89 (103) 117/74 (88) Pulse Ox 94 100 98 O2 Flow Rate 0 0 04/29/25 04/29/25 04/29/25 12:08 12:13 12:16 Temp 97.8 Pulse 78 Resp 18 16 18 B/P (MAP) 117/83 Pulse Ox 98 Laboratory Tests Test 04/29/25 10:04 04/29/25 11:06 White Blood Count 6.2 Red Blood Count 4.53 Hemoglobin 15.5 Hematocrit 44.3 Mean Corpuscular Volume 97.8 Mean Corpuscular Hemoglobin 34.3 H Mean Corpuscular Hemoglobin Concent 35.0 Red Cell Distribution Width 13.5 Platelet Count 187 Mean Platelet Volume 10.1 Neutrophils (%) (Auto) 58.3 Lymphocytes (%) (Auto) 25.7 Monocytes (%) (Auto) 14.3 H Eosinophils (%) (Auto) 1.4 Basophils (%) (Auto) 0.3 Neutrophils # (Auto) 3.6 Lymphocytes # (Auto) 1.6 Monocytes # (Auto) 0.9 Eosinophils # (Auto) 0.1 Basophils # (Auto) 0.0 CBC Comment Sodium Level 136 Potassium Level 3.1 L Chloride Level 99 Carbon Dioxide Level 28.7 Anion Gap 8 Blood Urea Nitrogen 5 L Creatinine 0.67 Estimated GFR/1.73 m2 > 90 BUN/Creatinine Ratio 7.5 L Glucose Level 123 H Calcium Level 9.1 Troponin I High Sensitivity 12 11 Pro-B-Type Natriuretic Peptide 186 H Albumin 3.5 Chemistry Comments Troponin I High Sens Percent Delta 8 Troponin I Hi Sens Absolute Change -1 Medical Decision Making Findings ER Course/Med. Decision Making REVIEW of RECORD(S): Previous medical records here and/or external medical records, such as that provided directly by the patient, by EMS and/or outside medical facilities, if available, were reviewed. COMORBIDITIES pulmonary hypertension and right heart failure, high maintenance pain control MDM During the physical examination, the findings suggestive of acute life- threatening condition such as JVD, tracheal deviation, acidotic breathing, noisy stridorous breath sounds, pulses paradoxus, muffled heart sounds, unequal breath sounds, abdominal rigidity and rebound tenderness, focal neurological deficits, cool clammy skin, severe hypotension, severe tachycardia or bradycardia are absent. Patient presenting for chest pain. Vital signs reviewed. Patient is hemodynamically stable and does not meet SIRS criteria. Patient appears nontoxic on exam. Physical examination is unremarkable and her labs within normal range and that is no evidence of enzyme leak. Patient's heart score is three. The patient's pain is taking care of and discharged from the emergency room with instruction to follow with [facility] pulmonary team. TREATMENT/DISPOSITION: The patient's presentation is most consistent with acute chest pain of unknown etiology. Prior to discharge I independently reviewed the patients past medical history, clinical risk factors, comorbidities, and social determinants of health and diagnostic studies. The patient appears to be a safe discharge home with close outpatient PCP follow-up I had extensive discussion with patient regarding management, disposition and follow up. Potential symptom etiology was discussed, and shared decision making occurred. They will return immediately if symptoms worsen, do not improve, or they have any further concerns. Prior to discharge all questions were addressed. The patient is aware that the purpose of this visit was to screen for an acute medical emergency requiring emergent stabilization. Chronic and occult conditions, including malignancies, have not been ruled out. If patient is unable to arrange follow-up as stated in the discharge instructions and further discussed with the patient directly, or their symptoms worsen/become more concerning, they are to return to the ER for reassessment immediately. Prior to leaving the department, the patient has a plan for discharge, has decision making capacity, and acknowledges an understanding of the verbal and written discharge instructions. SOCIAL DETERMINANTS: Patient demonstrates no obvious challenges to following up as an outpatient although did consider whether patient had any barriers to access care including homelessness, Food insecurity, Mental health, Substance abuse, Disabilities, Limited access to medical care, Difficulty finding transport, Insurance issues, Refusal of care or testing due to cost concerns. MEDICAL SCREENING: I have discussed with the patient the non-definitive nature of the emergency screening exam, diagnosis and the possibility of a variety of conditions which may present in atypically benign fashion and stressed the importance of close follow-up for definitive diagnosis and treatment. We discussed signs and symptoms that should be watched for which might indicate a more serious or new condition that would benefit from emergency reevaluation and the patient has verbalized understanding to this and my other detailed discharge instructions and promises compliance. I have referred him back to his primary physician of course for a more detailed evaluation and more definitive diagnoses. DISCLAIMER: Inadvertent spelling and grammatical errors are likely due to EMR/dictation software use and do not reflect on the overall quality of patient care. Note that the electronic time recorded on this note does not necessarily r eflect the actual time of the patient encounter. Departure Disposition: 01 HOME / SELF CARE / HOMELESS Impression: Primary Impression: Nonspecific chest pain Condition: Stable Discharge Instructions: Nonspecific Chest Pain, Adult Additional Instructions: Thank you for coming to our Emergency Department today. Please do follow with [facility] pulmonary team as soon as possible. Please ask your nurse or provider if you have questions about your care today and do not leave until all your questions have been answered. Please use any medications given as directed and follow-up with your doctor (or the doctor you were referred to) in the next 1-3 days. Your primary care doctor can help to coordinate outpatient specialty care and provide authorization for specialty referral as needed. If you do not have a primary care doctor you may follow up at a [facility]. You may also use motrin and tylenol as needed for fever and/or pain unless instructed otherwise by your provider or nurse. Indications for more urgent follow-up have been discussed, but you may return to the Emergency Department at ANY time for any worrisome or worsening symptoms. County Facilities: County Facilities: [facility]: [place] Address:[facility] [place] [address] [facility]: [place] Address:[facility] [place] [address] [facility]: [facility] Address:[facility] [place] [address] [facility] Address:[address] [place] [address] Registration Billing Pharmacy Referrals [facility] Address:[address] [place] [address] Referrals: NO PRIMARY CARE PROVIDER (PCP) Education Educated: Patient Educated regarding: diagnosis, treatment, need for follow up Signature Scribe Signature: x Attestation: JOSH Morales MD Apr 29, 2025 12:01
[2025-04-29 12:08] VITALS: BP 117/83; PULSE 78; TEMP 97.8; O2SAT 98
[2025-04-29] MEDS: ondansetron/PF 4mg/2ml inj IV ONE (12:13)
[2025-04-29 12:16] VITALS: RESP 18
== END 2025-04-29 12:19 | disposition home or self-care (01) ==
LOC: ER 09:33
DX: R07.9 Chest pain, unspecified (principal); I50.810 Right heart failure, unspecified; F41.9 Anxiety disorder, unspecified; F32.A Depression, unspecified; Z90.49 Acquired absence of other specified parts of digestive tract
CPT/HCPCS: 36415; 71045; 80048; 83880; 84484; 85025; 93005; 96374; 96375; 99285; J1171; J2405

== ENCOUNTER 2025-06-02 22:20 | Emergency (ER) | payer MEDICAID ==
[~2025-06-02] VITALS: Ht 172.7 cm; Wt 63.6 kg
--- NOTE | 2025-06-02 23:15 | RADIOLOGY REPORT ---
CHEST RADIOGRAPH Indication: CP Technique: Single frontal view of the chest was obtained COMPARISON: DI CHEST,SINGLE VIEW on DOS: 04/29/25, DI CHEST,SINGLE VIEW on DOS: 02/02/25, DI CHEST,SINGLE VIEW on DOS: 01/17/25, DI CHEST,SINGLE VIEW on DOS: 10/23/24, DI CHEST,SINGLE VIEW on DOS: 09/22/24 FINDINGS: Lines and Tubes: None Lungs: Clear Pleura: No effusion. No pneumothorax. Cardiomediastinal contours: Unremarkable Bones: Unremarkable IMPRESSION: 1. No acute disease.
--- NOTE | 2025-06-02 23:55 | Physician Documentation ---
History of Present Illness ~ Chief Complaint: Chest Pain Stated Complaint: SOB Time Seen by MD: 23:53 Primary Medical Doctor: BRAD SINGH Patient presents to the emergency room with chief complaint of racing heart rate. Patient's medical history is complicated by history of pulmonary hypertension that has well as Raynaud's. She states that she has been going to have chest pain and shortness of breath worse today. Patient has a baseline chest pain and shortness of breath. She endorses history of breast cancer in his working with her doctors for double mastectomy in in doing so she has had extensive cardiac workup fighting her pulmonary hypertension. She states she has had a stress test this past six months which was negative. Medication Reconciliation Allergies: Coded Allergies: butorphanol tartrate (Unverified Allergy, Unknown, 06/02/25) prochlorperazine maleate (Unverified Allergy, Unknown, 06/02/25) Scheduled Cefdinir (Cefdinir), 1 CAP PO Q12H Lorazepam (Ativan), 1 TAB PO PRN, (Reported) Macitentan/Tadalafil (Opsynvi 10-20 mg Tablet), 1 TAB PO DAILY, (Reported) Mirtazapine (Remeron), 1 TAB PO HS, (Reported) Ondansetron 8mg ODT (Ondansetron Odt), 1 TAB PO Q6H, (Reported) Scheduled PRN Hydroxyzine Hcl* (Atarax*), 1 TAB PO PRN PRN for for anxiety/agitation, (Reported) Oxycodone HCl/Acetaminophen (Percocet 10-325 mg Tablet), 1 TAB PO Q4H PRN for pain, (Reported) Past Medical History Past Medical History: Congestive Heart Failure, Pulmonary HTN, Anxiety, Depression Past Surgical History: appendectomy, cholecystectomy, other Alcohol Use: None Drug Use: none Lives with: Other Lives In: Home Occupation: employed Review of Systems ROS All review of systems negative except as per HPI Physical Exam Vital Signs: Temperature: 98.2, Source: Oral, Heart Rate: 140, Respiratory Rate: 16, BP: 123/80, Pulse Oximetry: 94, Weight: 63.600 Physical Exam General: Patient is awake, alert, oriented x4 in no acute distress Head: Normocephalic and atraumatic. Eyes: Conjunctival normal. EOMI. PERRL. ENT: Mucous membranes moist. Neck: Supple, trachea is midline. Chest: Clear to auscultation bilaterally without rales, rhonchi, or wheezes. There is no accessory muscle use or retractions. Cardiac: RRR without murmurs, gallops, or rubs. Abd: Soft, nondistended, nontender, with normoactive bowel sounds. No guarding, rebound, or rigidity. Progress Results/Orders Results/Orders Orders - JOSÉ MIGUEL WOODY MD Chest,Single View (06/02/25 23:05) Monitor (06/02/25 22:40) Saline Lock (06/02/25 22:40) Oxygen (06/02/25 22:40) Electrocardiogram (06/02/25 22:40) Hs Troponin I W Calculations (06/03/25 00:40) Hs Troponin I W Calculations (06/03/25 01:40) Cult Urine + [address] (06/03/25 03:03) Completed Orders - JOSÉ MIGUEL WOODY MD Chest,Single View (06/02/25 23:05) Normal Saline 1000ml (0.9% Sodium Chlori (06/02/25 23:55) Drug Screen, Urine (06/02/25 23:54) D-Dimer (06/03/25 00:06) Fentanyl/Pf (Fentanyl 0.05 Mg/Ml Syringe (06/03/25 00:10) Acetaminophen 1,000mg/100ml Iv (Ofirmev (06/03/25 00:10) Potassium Cl Sr Tablet (K-Dur Tablet) (06/03/25 02:23) Ondansetron Inj. (Zofran 4mg/2ml Vial) (06/03/25 02:25) Ua W/Microscopic, Cult If Ind (06/03/25 02:25) Medications Received in ER Medications (Trade) Dose Ordered Sig/Deanna Route PRN Reason Start Time Stop Time Status Last Admin Dose Admin Sodium Chloride 1,000 ml @ 1,000 mls/hr ONCE ONCE IV 06/02/25 23:55 06/03/25 00:54 DC 06/03/25 00:27 1,000 MLS/HR (fentaNYL 0.05 MG/ML syringe) 50 mcg ONCE ONCE IV 06/03/25 00:10 06/03/25 00:11 DC 06/03/25 00:31 50 MCG Acetaminophen 100 ml @ 400 mls/hr ONCE ONCE IV 06/03/25 00:10 06/03/25 00:24 DC 06/03/25 00:32 400 MLS/HR (K-DUR tablet) 40 meq ONCE STAT PO 06/03/25 02:23 06/03/25 02:32 DC 06/03/25 02:38 40 MEQ (Zofran 4mg/2ml vial) 4 mg ONCE ONCE IV 06/03/25 02:25 06/03/25 02:26 DC 06/03/25 02:39 4 MG Vital Signs 06/02/25 06/03/25 06/03/25 06/03/25 22:33 00:00 00:31 01:00 Temp 98.2 Pulse 140 120 108 Resp 16 14 18 13 B/P (MAP) 123/80 92/68 (76) 110/74 (86) Pulse Ox 94 94 97 06/03/25 06/03/25 06/03/25 01:50 02:00 02:41 Pulse 80 Resp 19 12 14 B/P (MAP) 120/79 (93) Pulse Ox 95 Laboratory Tests Test 06/02/25 22:38 06/03/25 00:42 06/03/25 02:25 06/03/25 02:45 CBC Comment Chemistry Comments White Blood Count 8.9 Red Blood Count 4.91 Hemoglobin 16.6 H Hematocrit 47.0 H Mean Corpuscular Volume 95.7 Mean Corpuscular Hemoglobin 33.7 H Mean Corpuscular Hemoglobin Concent 35.3 Red Cell Distribution Width 12.9 Platelet Count 201 Mean Platelet Volume 10.9 H Neutrophils (%) (Auto) 61.1 Lymphocytes (%) (Auto) 21.1 Monocytes (%) (Auto) 13.3 H Eosinophils (%) (Auto) 3.2 Basophils (%) (Auto) 1.3 H Neutrophils # (Auto) 5.4 Lymphocytes # (Auto) 1.9 Monocytes # (Auto) 1.2 H Eosinophils # (Auto) 0.3 Basophils # (Auto) 0.1 D-Dimer 0.28 D-Dimer Comment Sodium Level 133 L Potassium Level 2.7 *L Chloride Level 96 L Carbon Dioxide Level 28.1 Anion Gap 9 Blood Urea Nitrogen 10 Creatinine 0.86 Estimated GFR/1.73 m2 70 BUN/Creatinine Ratio 11.6 Glucose Level 115 H Calcium Level 9.4 Total Bilirubin 1.0 Aspartate Amino Transf (AST/SGOT) 42 H Alanine Aminotransferase (ALT/SGPT) 40 Alkaline Phosphatase 100 Troponin I High Sensitivity 43 Pro-B-Type Natriuretic Peptide 114 Total Protein 9.6 H Albumin 3.8 Globulin 5.8 H Albumin/Globulin Ratio 0.7 L Urine Specimen Description Cln catch midstream Urine Color Yellow Urine Clarity Slightly cloudy Urine pH 5.5 Urine Specific Ophelia 1.010 Urine Protein Negative Urine Glucose (UA) Negative Urine Ketones Negative Urine Occult Blood Negative Urine Nitrite Negative Urine Bilirubin Negative Urine Urobilinogen 0.2 Urine Leukocyte Esterase Small H Urine RBC 0-2 Urine WBC 10-20 H Urine Squamous Epithelial Cells Moderate Urine Amorphous Urates 1+ Urine Bacteria 1+ Urine Fine Granular Casts 3-5 Urine Mucus Few Urine Culture Indicated Indicated Volume Urine Centrifuged 10 ml Urine Comment Urine Opiates Screen Positive Urine Methadone Screen Negative Urine Fentanyl Screen Positive H Urine Barbiturates Screen Negative Urine Phencyclidine Screen Negative Urine Amphetamines Screen Positive Urine Benzodiazepines Screen Negative Urine Cocaine Screen Negative Urine Cannabinoids Screen Negative Drug Screen Comment EKG/XRAY/CT/US/VASC/MRI EKG : Additional Comment EKG interpreted by myself shows time of 09/17/2024, rate 139, sinus tachycardia, right axis deviation, no ST changes Chest X-Ray : Additional Comments Exam: CHEST,SINGLE VIEW CHEST RADIOGRAPH Indication: CP Technique: Single frontal view of the chest was obtained COMPARISON: DI CHEST,SINGLE VIEW on DOS: 04/29/25, DI CHEST,SINGLE VIEW on DOS: 02/02/25, DI CHEST,SINGLE VIEW on DOS: 01/17/25, DI CHEST,SINGLE VIEW on DOS: 10/23/24, DI CHEST,SINGLE VIEW on DOS: 09/22/24 FINDINGS: Lines and Tubes: None Lungs: Clear Pleura: No effusion. No pneumothorax. Cardiomediastinal contours: Unremarkable Bones: Unremarkable IMPRESSION: 1. No acute disease. Medical Decision Making Additional information obtaine: old records Findings Patient presents to the emergency room with chief complaint of racing heart. Differentials include but are not limited to SVT, atrial fibrillation, dehydrati on, anxiety, drug reaction therefore emergent labs indicated. Patient's heart rate and blood pressure improved with IV fluids and I do believe patient that has dehydrated. Patient's UDS positive for amphetamines and opioids. This is likely contributing to her dehydration and hypokalemia. We will put patient in his small course of potassium and she has been instructed to drink more water. Heart Score: 2 Differential Dx:Considerations: Include: angina, aortic dissection, chest wall pain, cholelithiasis, CHF, costochondritis, esophageal reflux/spasm, gastritis, herpes zoster, myocardial infarction, pericarditis, pleuritis, pancreatitis, pneumonia, pneumothorax, pulmonary embolus, other Departure Disposition: HOME / SELF CARE / HOMELESS Impression: Primary Impression: Dehydration Additional Impression: Hypokalemia Condition: Improved Discharge Instructions: Dehydration, Adult Additional Instructions: Drink plenty of water. You are little low on potassium we will give you small course potassium Referrals: NO PRIMARY CARE PROVIDER (PCP) Prescriptions Potassium Chloride* (K-Dur*) 20 Meq Tab.prt.sr 1 TAB PO Q12H, #6 TAB Prov: JOSÉ MIGUEL WOODY MD 06/03/25 Signature Scribe Signature: No scribe Attestation: The note accurately reflects work and decisions made by me.José Miguel Woody MD 06/03/25 03:16 JOSÉ MIGUEL WOODY MD Jun 02, 2025 23:55
[2025-06-03] MEDS: normal saline 1000ml 1,000 ML IV ONE (00:27)
[2025-06-03] MEDS: fentaNYL/PF 50MCG/1 ML 2ML syringe IV ONE (00:31)
[2025-06-03] MEDS: acetaminophen 1,000mg/100ml IV 100 ML IV ONE (00:32)
[2025-06-03 01:38] LABS: CREATININE 0.86 MG/DL (0.40-0.90); PRO BRAIN NATRIURETIC PEPTIDE 114 PG/ML (0-125); TOTAL CARBON DIOXIDE 28.1 MMOL/L (24-32); eCRCL 79 ML/MIN; eGFR 70 ML/MIN
[2025-06-03 02:04] LABS: MEAN PLATELET VOLUME 10.9 FL (7.4-10.4); RED CELL DISTRIBUTION WIDTH 12.9 % (11.5-14.5)
[2025-06-03] MEDS: potassium Cl 20 mEq SR tablet PO STA (02:38)
[2025-06-03] MEDS: ondansetron/PF 4mg/2ml inj IV ONE (02:39)
[2025-06-03 02:53] LABS: LEUKOCYTE ESTERASE ,URINE SMALL (Neg); NITRITES, URINE NEGATIVE (Neg); OCCULT BLOOD,URINE NEGATIVE (Neg)
[2025-06-03 02:59] LABS: URINE AMPHETAMINE SCREEN POSITIVE (Neg); URINE BARBITUATE SCREEN NEGATIVE (Neg); URINE BENZODIAZEPINES SCREEN NEGATIVE (Neg); URINE CANNABINOID SCREEN NEGATIVE (Neg); URINE COCAINE SCREEN NEGATIVE (Neg); URINE METHADONE SCREEN NEGATIVE (Neg); URINE OPIATE SCREEN POSITIVE (Neg); URINE PHENCYCLIDINE SCREEN NEGATIVE (Neg)
[2025-06-03 03:01] LABS: UA COLLECTION TYPE CLN CATCH MIDSTREAM
[2025-06-03 03:02] LABS: MUCUS STRANDS FEW /LPF (Neg); SQUAMOUS EPITHELIAL CELL,UR MODERATE /LPF (FEW)
[2025-06-03 03:03] LABS: AMORPHOUS URATES 1+
[2025-06-03] MEDS ORDERED: POTA-207 PO (03:16)
[2025-06-03] MEDS: ibuprofen tablet 400 MG TABLET PO ONE (03:31)
[2025-06-03 03:38] VITALS: BP 104/77; PULSE 104; RESP 15; TEMP 98.2; O2SAT 95
--- NOTE | 2025-06-03 05:57 | ELECTROCARDIOGRAPH REPORT ---
[facility] Test Date: 2025-06-02 Test Time: 22:25:10 Pat Name: LEIDY MAN Department: EMERGENCY ROOM Room: Gender: F Shearing Shed Hand: : 1975 Requested By: SAMI HENDRICKS [facility]: [id number] Reading MD: Dr. Tim Ramírez Measurements Intervals [place] Rate: 139 P: 82 SC: 130 QRS: 192 QRSD: 92 T: 37 QT: 305 QTc: 464 Interpretive Statements Sinus tachycardia Consider right atrial enlargement RVH with secondary repolarization abnrm Electronically Signed On 06-03-2025 18:50:[address] Tim Ramírez Please click the below link to view image of tracing.
== END 2025-06-03 03:41 | disposition home or self-care (01) ==
LOC: ER 22:20
DX: E87.6 Hypokalemia (principal); E86.0 Dehydration; I50.9 Heart failure, unspecified; Z90.49 Acquired absence of other specified parts of digestive tract; Z88.8 Allergy status to other drugs, medicaments and biological substances; Z79.899 Other long term (current) drug therapy
CPT/HCPCS: 36415; 71045; 80053; 80305; 81001; 83880; 84484; 85025; 85379; 87088; 93005; 96365; 96366; 96375; 99285; J0131; J2405; J3010; J7030; A4615

== ENCOUNTER 2025-06-14 22:39 | Emergency (ER) | payer MEDICARE, MEDICAID ==
[~2025-06-14] VITALS: Ht 172.7 cm; Wt 71.8 kg
[~2025-06-14 22:39] MED LIST changes: +POTA-207 PO
[2025-06-14 22:43] VITALS: TEMP 97.7
--- NOTE | 2025-06-14 22:59 | ELECTROCARDIOGRAPH REPORT ---
[facility] Test Date: 2025-06-14 Test Time: 22:57:45 Pat Name: LEIDY MAN Department: [facility]- Patient ID: [facility]-[id number] Room: Gender: F Clinical Application Manager: : 1975 Requested By: SAMI HENDRICKS Order Number: [id number] Reading MD: Dr. RENAN Ruth Measurements Intervals [place] Rate: 116 P: 74 VT: 137 QRS: 171 QRSD: 87 T: 66 QT: 325 QTc: 452 Interpretive Statements Sinus tachycardia Right atrial enlargement RVH with secondary repolarization abnrm Electronically Signed On 06-15-2025 17:27:[address] RENAN Ruth Please click the below link to view image of tracing.
--- NOTE | 2025-06-14 23:16 | Physician Documentation ---
History of Present Illness ~ Chief Complaint: Ankle pain Stated Complaint: EDEMA OF LEFT ANKLE Time Seen by MD: 23:14 Primary Medical Doctor: [facility] HPI Patient presents to the emergency room for evaluation of her left lower extremity. Patient had home health nurse evaluate her today that has concern for her left leg swollen and told her to go in to be evaluated for possible DVT. Tetanus witin 5 years: No Medication Reconciliation Allergies: Coded Allergies: butorphanol tartrate (Unverified Allergy, Unknown, 06/02/25) prochlorperazine maleate (Unverified Allergy, Unknown, 06/02/25) Scheduled Cefdinir (Cefdinir), 1 CAP PO Q12H Lorazepam (Ativan), 1 TAB PO PRN, (Reported) Macitentan/Tadalafil (Opsynvi 10-20 mg Tablet), 1 TAB PO DAILY, (Reported) Mirtazapine (Remeron), 1 TAB PO HS, (Reported) Ondansetron 8mg ODT (Ondansetron Odt), 1 TAB PO Q6H, (Reported) Potassium Chloride* (K-Dur*), 1 TAB PO Q12H Scheduled PRN Hydroxyzine Hcl* (Atarax*), 1 TAB PO PRN PRN for for anxiety/agitation, (Reported) Oxycodone HCl/Acetaminophen (Percocet 10-325 mg Tablet), 1 TAB PO Q4H PRN for pain, (Reported) Past Medical History Past Medical History: Congestive Heart Failure, Pulmonary HTN, Anxiety, Depression Past Surgical History: appendectomy, cholecystectomy, other Alcohol Use: None Drug Use: none Lives with: Other Lives In: Home Occupation: employed Review of Systems ROS All review of systems negative except as per HPI Physical Exam Vital Signs: Temperature: 97.7, Heart Rate: 97, Respiratory Rate: 16, BP: 107/70, Pulse Oximetry: 99, Weight: 71.800 Oxygen Flow Rate: 0 Physical Exam General: Patient is awake, alert, oriented x4 in no acute distress Head: Normocephalic and atraumatic. Eyes: Conjunctival normal. EOMI. PERRL. ENT: Mucous membranes moist. Neck: Supple, trachea is midline. Chest: Clear to auscultation bilaterally without rales, rhonchi, or wheezes. There is no accessory muscle use or retractions. Cardiac: RRR without murmurs, gallops, or rubs. Extremities: Mild swelling of left calf compared to right. Noted blanching rash on bilateral shock areas of bilateral ankles. Progress Results/Orders Results/Orders Orders - JOSÉ MIGUEL WOODY MD Chest,Single View (06/14/25 23:35) Monitor (06/14/25 22:49) Saline Lock (06/14/25 22:49) Oxygen (06/14/25 22:49) Hs Troponin I W Calculations (06/15/25 00:49) Hs Troponin I W Calculations (06/15/25 01:49) Vl Venous (06/14/25 23:21) Completed Orders - JOSÉ MIGUEL WOODY MD Chest,Single View (06/14/25 23:35) Cbc/Diff (06/14/25 22:49) BMP (06/14/25 22:49) PBNP (06/14/25 22:49) Electrocardiogram (06/14/25 22:49) Hs Troponin I W Calculations (06/14/25 22:49) Vl Venous (06/14/25 23:21) Man Diff (06/14/25 23:12) Vital Signs 06/14/25 06/14/25 22:43 23:57 Temp 97.7 Pulse 97 78 Resp 16 16 B/P (MAP) 107/70 112/79 (90) Pulse Ox 99 96 O2 Flow Rate 0 Laboratory Tests Test 06/14/25 23:12 06/15/25 00:51 White Blood Count 5.4 Red Blood Count 4.38 Hemoglobin 14.4 Hematocrit 41.8 Mean Corpuscular Volume 95.6 Mean Corpuscular Hemoglobin 32.9 H Mean Corpuscular Hemoglobin Concent 34.4 Red Cell Distribution Width 13.2 Platelet Count 231 Mean Platelet Volume 9.7 Neutrophils (%) (Auto) 41.9 L Lymphocytes (%) (Auto) 36.1 Monocytes (%) (Auto) 17.2 H Eosinophils (%) (Auto) 4.3 Basophils (%) (Auto) 0.5 Neutrophils # (Auto) 2.3 Lymphocytes # (Auto) 2.0 Monocytes # (Auto) 0.9 Eosinophils # (Auto) 0.2 Basophils # (Auto) 0.0 CBC Comment Differential Total Cells Counted 100 Neutrophils % (Manual) 48.0 Lymphocytes % (Manual) 39.0 Monocytes % (Manual) 10.0 Eosinophils % (Manual) 3.0 Platelet Estimate Normal Red Blood Cell Morphology Perf Basophilic Stippling Macrocytosis Few Sodium Level 138 Potassium Level 3.5 Chloride Level 102 Carbon Dioxide Level 24.8 Anion Gap 11 Blood Urea Nitrogen 4 L Creatinine 0.68 Estimated GFR/1.73 m2 > 90 BUN/Creatinine Ratio 5.9 L Glucose Level 101 Calcium Level 8.6 Troponin I High Sensitivity 50 Pro-B-Type Natriuretic Peptide 1624 H Albumin 3.0 L Chemistry Comments Medical Decision Making Additional information obtaine: old records Findings Patient presented to the emergency room with some swelling and redness to her left lower extremity. Differentials include but are not limited to DVT, cellulitis, thrombophlebitis therefore ultrasound ordered which did show a lymph node however no DVT. Given risks versus benefit antibiotic initiated. ER precautions discussed. General Diff Dx:Considerations: Include: Abrasion, Contusion, Fracture, Hematoma, Laceration, Malunion, Neurovascular injury, Open fracture, Sprain, Ulcer, Other Knee Diff Dx:Considerations: Include: Abrasion, Arthritis, Contusion, DJD, Fracture-femur, Fracture-fibula, Fracture-patella, Fracture-tibia, Gout, Hematoma, Laceration, Meniscus injury, Neurovascular injury, Open fracture, Rheumatoid arthritis, Septic, Sprain, Sprain-MCL, Sprain-LCL, Sprain-ACL, Sprain-PCL, Other Ankle Diff Dx:Considerations: Include: Abrasion, Arthritis, Contusion, DJD, Fracture-metatarsal, Fracture-fibula, Fracture-tarsal, Fracture-tibia, Gout, Hematoma, Laceration, Malunion, Neurovascular injury, Nonunion, Open fracture, Osteomyelitis, Rheumatoid arthritis, Sprain, Septic, Ulcer, Other Foot Diff Dx:Considerations: Include: Abrasion, Arthritis, Cellulitis, Contusion, Dislocation, DJD, Fracture-metatarsal, Fracture-phalynx, Fracture- tarsal, Gout, Hematoma, Ingrown toenail, Laceration, Malunion, Neurovascular injury, Open fracture, Paronychia, Puncture, Rheumatoid, Sprain, Septic, Subungual hematoma, Ulcer, Other Toe Diff Dx:Considerations: Include: Abrasion, Cellulitis, Contusion, Dislocation, Felon, Fracture, Hematoma, Laceration, Neurovascular injury, Open fracture, Paronychia, Subungual hematoma, Other Departure Disposition: 01 HOME / SELF CARE / HOMELESS Impression: Primary Impression: Cellulitis Condition: Stable Discharge Instructions: Cellulitis, Adult, [id number] Referrals: NO PRIMARY CARE PROVIDER (PCP) Prescriptions Cephalexin*Monohydrate* (Keflex*) 500 Mg Capsule 1 CAP PO Q12H for 10 Days, #20 CAP Prov: JOSÉ MIGUEL WOODY MD 06/15/25 Signature Scribe Signature: No scribe Attestation: The note accurately reflects work and decisions made by me.José Miguel Woody MD 06/15/25 01:08 JOSÉ MIGUEL WODOY MD Jun 14, 2025 23:16
[2025-06-14 23:25] LABS: MEAN PLATELET VOLUME 9.7 FL (7.4-10.4); RED CELL DISTRIBUTION WIDTH 13.2 % (11.5-14.5)
[2025-06-14 23:41] LABS: CREATININE 0.68 MG/DL (0.40-0.90); PRO BRAIN NATRIURETIC PEPTIDE 1624 PG/ML (0-125); TOTAL CARBON DIOXIDE 24.8 MMOL/L (24-32); eCRCL 100 ML/MIN; eGFR > 90 ML/MIN
[2025-06-14 23:49] LABS: EOSINOPHILS % (MANUAL) 3.0 % (0-6); LYMPHOCYTES % (MANUAL) 39.0 % (21-51); MONOCYTES % (MANUAL) 10.0 % (2-12); NEUTROPHILS % (MANUAL) 48.0 % (42-75); PLATELET ESTIMATE NORMAL
--- NOTE | 2025-06-15 00:25 | RADIOLOGY REPORT ---
CHEST RADIOGRAPH Indication: CP Technique: 1 view Comparison: DI CHEST,SINGLE VIEW on DOS: 06/02/25, DI CHEST,SINGLE VIEW on DOS: 04/29/25, DI CHEST,SINGLE VIEW on DOS: 02/02/25, DI CHEST,SINGLE VIEW on DOS: 01/17/25, DI CHEST,SINGLE VIEW on DOS: 10/23/24 FINDINGS: Lines and Tubes: External leads. Lungs/Pleura: No focal consolidation, pleural effusion or pneumothorax. Cardiomediastinum: Unremarkable. Other: No acute osseous abnormality. IMPRESSION: 1. No acute cardiopulmonary abnormality.
--- NOTE | 2025-06-15 01:06 | VASCULAR REPORT ---
MEDICAL RECORDS NUMBER: [id number] PROCEDURE: Bilateral lower extremity venous duplex Date: 06/15/2025 12:01 AM HISTORY: Left lower extremity swelling COMPARISON: None TECHNIQUE: Real-time ultrasound scan of the examination listed above with color Doppler flow, spectral waveform analysis and compression. FINDINGS: Multiple grayscale and Doppler images of the bilateral lower extremities demonstrate normal phasic flow, augmentation and compression. IMPRESSION: 1. No DVT is seen. No other abnormalities identified.
[2025-06-15] MEDS ORDERED: CEPH-585 PO (01:08)
[2025-06-15 01:18] VITALS: BP 108/73; PULSE 95; RESP 14; O2SAT 98
== END 2025-06-15 01:21 | disposition home or self-care (01) ==
LOC: ER 22:40
DX: L03.116 Cellulitis of left lower limb (principal); F41.9 Anxiety disorder, unspecified; F32.A Depression, unspecified; I50.9 Heart failure, unspecified; Z90.49 Acquired absence of other specified parts of digestive tract; Z79.899 Other long term (current) drug therapy; Z88.8 Allergy status to other drugs, medicaments and biological substances
CPT/HCPCS: 36415; 71045; 80048; 83880; 84484; 85007; 85025; 93005; 93971; 99285

== ENCOUNTER 2025-07-23 07:58 | Emergency (ER) | payer MEDICARE, MEDICAID ==
[~2025-07-23] VITALS: Ht 174 cm; Wt 61.9 kg
[~2025-07-23 07:58] MED LIST changes: -POTA-207 PO
[2025-07-23 08:03] VITALS: TEMP 97.6
[2025-07-23] MEDS ORDERED: MORP15TA60 PO (09:57)
[2025-07-23] MEDS ORDERED: NALO4SPR BOTHNARES (09:58)
--- NOTE | 2025-07-23 09:58 | Physician Documentation ---
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 Patient is having breakthrough pain. Patient takes MS Contin 30 mg 3 times a day and has Dilaudid for breakthrough pain. Patient is having increased pain and anxiety. Tetanus within 5 years?: No Medication Reconciliation Allergies: Coded Allergies: butorphanol tartrate (Unverified Allergy, Unknown, 06/02/25) prochlorperazine maleate (Unverified Allergy, Unknown, 06/02/25) Scheduled Cefdinir (Cefdinir), 1 CAP PO Q12H Lorazepam (Ativan), 1 TAB PO PRN, (Reported) Macitentan/Tadalafil (Opsynvi 10-20 mg Tablet), 1 TAB PO DAILY, (Reported) Mirtazapine (Remeron), 1 TAB PO HS, (Reported) Ondansetron 8mg ODT (Ondansetron Odt), 1 TAB PO Q6H, (Reported) Scheduled PRN Hydroxyzine Hcl* (Atarax*), 1 TAB PO PRN PRN for for anxiety/agitation, (Reporte d) Oxycodone HCl/Acetaminophen (Percocet 10-325 mg Tablet), 1 TAB PO Q4H PRN for pain, (Reported) Past Medical History Past Medical History: Congestive Heart Failure, Pulmonary HTN, *CANCER*, Breast Cancer, Anxiety, Depression Past Surgical History: appendectomy, cholecystectomy, other Alcohol Use: None Drug Use: none Lives with: Other Lives In: Home Occupation: employed Review of Systems All Other Systems at this time: Reviewed and Negative Physical Exam Vital Signs: RN Vital Signs have been reviewed: Yes, Temperature: 97.6, Source: Temporal, Heart Rate: 81, Respiratory Rate: 16, BP: 136/96, Pulse Oximetry: 99, Weight: 61.900 General Appearance General: Alert, mild distress due to pain HEENT: PERRL, EOMI, no injection, moist mucous membranes. Neck: Full range of motion. Respiratory: Lungs clear, no respiratory distress. Chest: No accessory muscle use. Cardiovascular: Regular rate and rhythm, no murmurs. Extremities: Normal range of motion, no deformity. Neurologic: Oriented x4. Psychiatric: Normal mood and affect. Skin: Normal color, warm and dry. No edema, no ecchymosis. Progress Results/Orders Results/Orders Vital Signs 07/23/25 08:03 Temp 97.6 Pulse 81 Resp 16 B/P (MAP) 136/96 Pulse Ox 99 Medical Decision Making Additional information obtaine: old records Findings Patient is scheduled for mastectomy has been good care palliative Care, [facility] as well as pulmonology. We will treat breakthrough pain for patient to be seen and evaluated by her pain specialist this week. Differential Dx:Considerations: Include: Cancer Departure Time of Disposition: 09:55 Disposition: 01 HOME / SELF CARE / HOMELESS Impression: Primary Impression: Breast cancer Additional Impressions: Breast tenderness Anxiety about dying Condition: Stable Discharge Instructions: Breast Tenderness Additional Instructions: Continue to follow with [facility] for pain management of your breast pain due to breast cancer. Maintain appointments with specialty. Monitor for any new or worsening symptoms feel free to return to the ER. 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 Referrals: NO PRIMARY CARE PROVIDER (PCP) Prescriptions Naloxone HCl (Narcan) 4 Mg/Actuation [place] 1 SPRAYS BOTHNARES ONCE for 1 Day, #1 EA 0 Refills Prov: JACKELYN BROWN NP 07/23/25 Morphine Sulfate (Ms Contin) 15 Mg Tablet.er 1 TAB PO Q8H PRN for pain for 5 Days, #10 TAB 0 Refills Prov: JACKELYN BROWN NP 07/23/25 Education Educated: Patient Educated regarding: diagnosis, treatment, need for follow up Signature Scribe Signature: No scribe Attestation: The note accurately reflects work and decisions made by me.Jackelyn Brown - RESHIPPING CLERK 07/23/25 09:58 JACKELYN BROWN NP Jul 23, 2025 09:58
[2025-07-23] MEDS: ketorolac trometh 30MG/ML vial 30 MG/ML VIAL IM ONE (10:10)
[2025-07-23 10:17] VITALS: BP 144/95; PULSE 79; RESP 15; O2SAT 99
== END 2025-07-23 10:21 | disposition home or self-care (01) ==
LOC: ER 07:59
DX: N64.4 Mastodynia (principal); F41.9 Anxiety disorder, unspecified; F32.A Depression, unspecified; I50.9 Heart failure, unspecified; Z85.3 Personal history of malignant neoplasm of breast; Z90.49 Acquired absence of other specified parts of digestive tract; Z88.8 Allergy status to other drugs, medicaments and biological substances; Z79.899 Other long term (current) drug therapy
CPT/HCPCS: 96372; 99283; J1885